=== PATIENT | male | born 1965 | race Caucasian/White ===

== ENCOUNTER 2016-09-15 12:55 | Emergency (ER) | payer MEDICARE ==
--- NOTE | 2016-09-15 13:33 | ERNOTE ---
Medical Problem HPI - Narrative Date of Service: 09/15/16 - General Chief Complaint: General Assessment Time Seen by Provider: 09/15/16 13:17 Source: patient Exam Limitations: no limitations - Immun/Allergies/Home Medications Immunizations: IMMUNIZATION HX Immunizations Up to Date Yes History of Influenza Vaccine Yes Allergies/Adverse Reactions: Allergies adhesive Allergy (Verified 09/15/16 13:02) Iodinated Contrast Media - Oral and Allergy (Verified 09/15/16 13:02) latex Allergy (Verified 09/15/16 13:02) milk Allergy (Verified 09/15/16 13:02) oxycodone HCl [From OxyContin] Allergy (Verified 09/15/16 13:02) peanut Allergy (Verified 09/15/16 13:02) Penicillins Allergy (Verified 09/15/16 13:02) Home Medications: HOME MEDICATIONS Cabergoline 0.5 mg PO DAILY 01/11/16 [Last Taken Unknown] Ferrous Sulfate [Iron] 325 mg PO BID 01/11/16 [Last Taken Unknown] - History of Present History Narrative: Pt. comes in with c/o LLE swelling and pain with weakness and dizziness. Pt. denies any SOB or CP but does state taht he has had some palpitations. Pt. denies any NVD, recent illness, fevers or chills. Pt. denies any prehospital treatment , alleviating factors, aggravating factors, or prehospital treatment. Pt. states taht he has a hx of pituitary tumor and Iron deficient anemia. Review of Systems - Review of Systems Constitutional: Present: weakness, fatigue. Absent: fever, chills, diaphoresis , malaise EYE: Present: no symptoms reported ENT: Present: no symptoms reported Respiratory: Present: no symptoms reported. Absent: shortness of breath, cough , wheezing Cardiology: Present: palpitations, edema - LLE. Absent: chest pain Gastrointestinal/Abdominal: Present: no symptoms reported. Absent: nausea, vomiting, diarrhea, abdominal pain Genitourinary: Present: no symptoms reported Musculoskeletal: Present: muscle pain - LLE Skin: Present: no symptoms reported. Absent: rash, change in hair/nails Neurological: Present: dizziness/light-headedness. Absent: headache, numbness, tingling All Other Systems: All systems neg except as marked - Patient's Past Medical History Patient History - Medical: No pertinent hx Patient History - Cardiac/Respiratory: No pertinent hx Patient History - Cancer: No Hx of Cancer Patient History - Surgical Procedures: Other Patient History - Other: None - Family History Father Family History - Medical: Diabetes Type 2 - Social History Living Situations: home Psych History: No pertinent hx Alcohol Use: none Drug Use: none - Immunizations Immunizations Up to Date: Yes History of Influenza Vaccine: Yes Physical Exam - Physical Exam General Appearance: Present: wd/wn, alert, no apparent distress Eye Exam: Normal inspection: bilateral, PERRL: bilateral, EOMI: bilateral Ears, Nose, Throat: Present: normal ENT inspection, normal pharynx Neck: Present: normal inspection, nontender. Absent: lymphadenopathy (R), lymphadenopathy (L) Respiratory: Present: no respiratory distress, normal breath sounds, no accessory muscle use, chest nontender, lungs clear Cardiovascular/Chest: Present: regular rate, rhythm, no murmur, normal peripheral pulses Gastrointestinal/Abdominal: Present: normal bowel sounds, nontender, nondistended, soft, no organomegaly Back Exam: Present: normal inspection, normal range of motion, no CVA tenderness , no vertebral tenderness Extremity Exam: Present: calf tenderness - LLE, extremity edema - LLE +4 Neurological Exam: Present: alert, oriented, normal mood/affect, no motor/ sensory deficits Skin Exam: Present: normal color, warm/dry. Absent: pallor, skin rash ED Progress - Date and Time Seen: Date and Time: 09/15/16 17:52 Discussed case with Trina Julia and she feels pt. is unable to be admitted as he is not septic but with pt dizziness and weakness am uncomfortable. Requested Trina to come evaluate the pt. and discharge from the ER. Pt. miraculously was not dizzy and weak after receiving pain medications so notified hospitalist that it was unnecessary for her to assess pt as he had greatly improved. Verified orthostatic BP WNL. Will discharge pt. to home. - Vital Signs Patient's Vital Signs:: I have reviewed the patient's vital signs. Vital Signs: Vital Signs 09/15/16 12:59 Temperature 36.2 C L Pulse Rate 79 Respiratory 12 Rate Blood Pressure 143/85 O2 Sat by Pulse 95 Oximetry - EKG EKG: NSR EKG read: Reviewed by me EKG Comments: Interpreted by Dr Gilmore - CT/Ultrasound CT/Ultrasound Narrative: US neg for DVT - Progress/Reassessment Chief Complaint: General Assessment Departure - Departure Clinical Impression: Cellulitis and abscess of left lower extremity Disposition: Home self-care Condition: Fair Instructions: Cellulitis, Adult, [id number] Additional Instructions: Please follow up with primary provider in 2-3 days and return to the ER if you have any further problems. Referrals: Kiya Pollack, CIRCUIT CLERK [Primary Care Provider] -
--- OUTSIDE RECORDS SUMMARY | 2016-09-15 13:33 | XMS REPORT | Continuity of Care Document ---
:1965 Author Organization [facility] ([facility]) Address [address] [place] [address] Phone [phone] Care Team Providers Name Role Phone Kiya Pollack Primary Care Provider [phone] Source Comments This disclosure is being made pursuant to the Care Everywhere program, applicable federal and state laws, and may not contain all informaitonavailable regarding this patient.[facility] ([facility]) Active Allergies and Adverse Reactions Allergen Noted Date Severity Reactions Comments Adhesive 03/17/2013 Pruritus,Rash Caffeine 11/24/2012 Chest pain Chest pain and palpitations Contrast Media Respiratory Distress Food Extracts 11/24/2012 Angioedema FOOD DYES Iodine Angioedema "white blood count went up high" Latex, Natural Rubber Urticaria (Hives) Non-Med Tape Pruritus Oxycodone OTHER depression Penicillins Respiratory Distress Current Medications Prescription Sig. Disp. Refills Start Date End Date Status CALCIUM PO Take 1 Tab by mouth Active daily. cholecalciferol Take 1,000 Units by Active (VITAMIN D3) 1,000 mouth daily. unit tablet cabergoline 0.5 mg Take 1 Tab by mouth 2 8 Tab 11 10/06/2013 Active tablet times weekly. Indications: HYPERPROLACTINEMIA VITAMIN D2 50,000 1 06/29/2014 Active unit capsule Active Problems Problem Noted Date Prolactinoma 03/17/2013 Hyperprolactinemia 11/05/2012 Gynecomastia 11/05/2012 Hypogonadism male 11/05/2012 Primary localized osteoarthrosis, lower leg 12/03/2007 Pain in limb 08/13/2007 Obesity, unspecified 02/20/2006 Other closed dislocation of knee(836.59) 06/26/2004 Closed posterior dislocation of tibia, proximal end 01/24/2004 Resolved Problems Problem Noted Date Resolved Date Wheezing 05/09/2006 11/05/2012 Cough 05/09/2006 11/05/2012 Screening for diabetes mellitus 02/20/2006 11/05/2012 JOINT PAIN-L/LEG 11/22/2004 11/05/2012 Other and unspecified anterior pituitary hyperfunction 09/27/2004 11/05/2012 Immunizations Name Dates Previously Given Next Due Influenza, unspecified 05/06/2007 Social History Tobacco Use Types Packs/Day Years Used Date Never Smoker Last Filed Vital Signs Vital Sign Reading Time Taken Blood Pressure 144/80 09/22/2014 1:26 PM CDT Pulse 68 09/22/2014 1:26 PM CDT Temperature 36.5 C (97.7 F) 10/06/2013 2:55 PM CDT Respiratory Rate 20 02/18/2008 8:03 AM CDT Height 1.88 m (6' 2") 09/22/2014 1:26 PM CDT Weight 166.924 kg (368 lb) 09/22/2014 1:26 PM CDT Body Mass Index 47.23 09/22/2014 1:26 PM CDT Oxygen Saturation - - Plan of Care Health Maintenance Due Date Last Done Comments Hepatitis B Vaccine (1 of 3 - Primary Series) 1965 Tdap Vaccine 1976 Lipid Disorder Screening 12/22/1983 MMR Vaccine 12/22/1983 Td Vaccine 12/22/1983 Influenza Vaccine: Seasonal (#1) 11/21/2015 05/06/2007 Colonoscopy 2015 Prostate Cancer Screening 12/22/2015 11/05/2012 Results from Last 3 Months Not on file
[2016-09-15 13:48] LABS: Hematocrit 40.1 % (42.0-52.0); Hemoglobin 12.9 gm/dL (13.5-18.0); Mean Corpuscular Hgb Conc 32.2 g/dl (32-36); Mean Platelet Volume 9.8 fl (6.0-9.5); Neutrophil # 12.3 K/mm3 (1.3-6.0); Neutrophil % 66.2 % (42-75.0); Platelet Count 598 K/mm3 (150-450); Red Blood Count 4.61 M/mm3 (4.7-6.0); Red Cell Distribution Width 14.7 % (11.5-14.0); White Blood Count 18.6 K/mm3 (4.0-10.5)
[2016-09-15 13:54] LABS: Total Cells Counted 100
[2016-09-15] MEDS ORDERED: KETOROLAC TROMETHAMINE 30 MG/ML VIAL IV ONE (14:04)
[2016-09-15 14:05] LABS: ALT 33 U/L (19-67); AST 23 U/L (0-48); Albumin * 3.6 gm/dl (3.4-5.0); Alkaline Phosphatase * 99 U/L (50-170); Anion Gap 11.1 mmol/L (6.8-13.8); BUN/Creatinine Ratio 17.1 (9.0-21.6); Bilirubin, Total 0.4 mg/dL (0.0-1.1); Blood Urea Nitrogen 14 mg/dL (6-23); CRP 1.3 mg/dL (0.0-0.9); Ca. Corrected For Albumin 9.2 mg/dL (8.4-10.2); Calcium * 9.2 mg/dL (7.9-10.9); Carbon Dioxide 30.2 mmol/L (24-32.6); Chloride 106 mmol/L (97-106); Glucose * 94 mg/dL (70-110); Potassium 4.3 mmol/L (3.4-4.6); Sodium 143 mmol/L (132-142); Total Protein 7.7 gm/dL (6.2-8.2); Troponin I Less than 0.017 ng/ml (0.00-0.10)
[2016-09-15] MEDS ORDERED: KETOROLAC TROMETHAMINE 30 MG/ML VIAL ONE (14:08)
[2016-09-15 14:23] LABS: Eosinophil 1 % (0-3); Lymphocyte 26 % (20-51); Monocyte 12 % (0-9); Neutrophil 61 % (42-75); Neutrophil # 11.3 K/mm3 (1.3-6.0)
[2016-09-15 14:24] LABS: Platelet Estimate Increased (NORMAL); RBC Morphology Normal (NORMAL)
[2016-09-15] MEDS ORDERED: NORMAL SALINE 1,000 ML IV ONE (14:38)
[2016-09-15 15:54] LABS: Urine Appearance Clear; Urine Bacteria None Seen; Urine Bilirubin Negative (NEGATIVE); Urine Blood Negative /ul (NEGATIVE); Urine Color Yellow; Urine Ketone Negative (NEGATIVE); Urine Nitrite Negative (NEGATIVE); Urine Protein Negative (NEGATIVE); Urine RBC None Seen /hpf (0-5); Urine Specific Gravity 1.025 SP.GR. (1.005-1.030); Urine Urobilinogen Normal (NORMAL); Urine WBC None Seen /hpf (0-5); Urine pH 5.5 pH (5.0-7.0)
[2016-09-15] MEDS ORDERED: ACETAMINOPHEN 500 MG TABLET PO ONE (15:59)
[2016-09-15 16:07] VITALS: BP 138/79
--- NOTE | 2016-09-15 16:46 | OR ---
Anesthesia Procedure Note - Anesthesia Procedure Note Narrative: Vital Signs - Last Taken Temp 36.2 C L 09/15/16 12:59 Pulse 74 09/15/16 16:06 Resp 12 09/15/16 16:06 BP 138/79 09/15/16 16:06 Pulse Ox 95 09/15/16 16:06 O2 Oxygen Delivery Method Room Air 09/15/16 16:45 ANESTHESIA PROCEDURE NOTE Date of procedure: 09/15/2016. Time of procedure: 1630. Performed by: Melquiades Minor CRNA Supervisor Assembly Stock: None . Preprocedure diagnosis: Anemia. Difficult IV access. Post procedure diagnosis: Same. Procedure: IV start Indications: Difficult IV access. Findings: 22-gauge Angiocath started in patient's right forearm EBL: Minimal. Fluids: N/A. Specimen: N/A. Post procedure condition: The patient tolerated the procedure well. No complications were noted. Thank you for this consultation Melquiades Minor CRNA
== END 2016-09-15 18:20 | disposition home or self-care (01) ==
LOC: ER 12:55
DX: L03.116 Cellulitis of left lower limb (principal); L02.416 Cutaneous abscess of left lower limb

== ENCOUNTER 2016-11-10 16:45 | Emergency (ER) | payer MEDICARE ==
[2016-11-10] MEDS ORDERED: KETOROLAC TROMETHAMINE 60 MG/2 ML VIAL IM ONE ×2 (17:00→17:02)
[2016-11-10] MEDS ORDERED: HYDROmorphone HCL 1 MG/ML DISP.SYRIN IM ONE (17:02)
[2016-11-10] MEDS ORDERED: ONDANSETRON HCL 8 MG TABLET PO ONE (17:03)
[2016-11-10] MEDS ORDERED: HYDROmorphone HCL 1 MG/ML DISP.SYRIN ONE (17:05)
[2016-11-10] MEDS ORDERED: ONDANSETRON HCL 8 MG TABLET ONE (17:05)
--- NOTE | 2016-11-10 17:05 | ERNOTE ---
Lower Extremity HPI - Narrative Date of Service: 11/10/16 - General Lower Extremities Pain: hip: left, leg: left Time Seen by Provider: 11/10/16 16:53 Source: patient Exam Limitations: no limitations - Immun/Allergies/Home Medications Immunizations: IMMUNIZATION HX Immunizations Up to Date Yes History of Influenza Vaccine Yes Allergies/Adverse Reactions: Allergies Allergy/AdvReac Type Severity Reaction Status Date / Time adhesive Allergy Verified 09/15/16 13:02 Iodinated Contrast Media - Allergy Verified 09/15/16 13:02 Oral and latex Allergy Verified 09/15/16 13:02 milk Allergy Verified 09/15/16 13:02 oxycodone HCl Allergy Verified 09/15/16 13:02 [From OxyContin] peanut Allergy Verified 09/15/16 13:02 Penicillins Allergy Verified 09/15/16 13:02 Home Medications: HOME MEDICATIONS Cabergoline 0.5 mg PO DAILY 01/11/16 [Last Taken Unknown] Ibuprofen [Motrin] 800 mg PO TID PRN #30 tab 11/10/16 [Last Taken Unknown] Tramadol HCl [Rybix Odt] 50 mg PO TID PRN #14 11/10/16 [Last Taken Unknown] - History of Present Illness Narrative: 50-year-old white male with chronic lymphedema because of prior compartment syndrome surgery on his left lower extremity year 2003 presents with acute injury to left lower extremity. Patient states he injured his left lower leg 3 hours ago. He states initially it did not hurt bad but then began hurting severely about 20 minutes after the injury. He states he was getting up with his spider vehicle and twisted his left knee. He has no numbness or tingling. Pain is severe. He was able to drive himself to the ED door. He called from the door and we had to go out and help assist him out of his vehicle and into a wheelchair to bring him into the ED. Denies any fall with the original injury. Review of Systems - Review of Systems Constitutional: Present: no symptoms reported Respiratory: Present: no symptoms reported Cardiology: Present: chest pain, other - patient states he has some chest pain because he is anxious. Gastrointestinal/Abdominal: Present: no symptoms reported, nausea Genitourinary: Present: no symptoms reported Musculoskeletal: Present: See HPI Skin: Present: no symptoms reported Neurological: Present: no symptoms reported. Absent: weakness, numbness Endocrine: Present: See HPI Hematologic/Lymphatic: Present: other - patient has chronic lymphedema left lower extremity from prior compartment syndrome and complication from recovery from surgery All Other Systems: All systems neg except as marked - Patient's Past Medical History Patient History - Medical: No pertinent hx Patient History - Cardiac/Respiratory: No pertinent hx Patient History - Cancer: No Hx of Cancer Patient History - Surgical Procedures: Other Patient History - Other: None - Family History Father Family History - Medical: Diabetes Type 2 - Social History Living Situations: home Psych History: No pertinent hx Alcohol Use: none Drug Use: none - Immunizations Immunizations Up to Date: Yes History of Influenza Vaccine: Yes Physical Exam - Physical Exam General Appearance: Present: wd/wn, alert, mild distress Head Exam: Present: normal inspection Ears, Nose, Throat: Present: normal ENT inspection Neck: Present: normal inspection Respiratory: Present: no respiratory distress, normal breath sounds, no accessory muscle use Cardiovascular/Chest: Present: regular rate, rhythm, no murmur, normal peripheral pulses Gastrointestinal/Abdominal: Present: normal bowel sounds, abnormal bowel sounds Back Exam: Present: normal inspection Extremity Exam: Present: other - chronic severe lymphedema left lower extremity with large medial and lateral prior surgical scars for the compartment syndrome. No overt tenderness. Patient unable to flex or tolerate any testing of the knee joint on the left due to pain. There is no focal tenderness. I do not think there is effusion. However exam is limited due to pain and patient's baseline severe lymphedema. Skin Exam: Present: normal color, warm/dry Lymphatic Exam: Present: other - chronic left lower leg lymphedema ED Progress - Results and Orders Patient's Lab Results:: I have reviewed the patient's lab results. - Vital Signs Patient's Vital Signs:: I have reviewed the patient's vital signs. - EKG EKG: NSR, no ST T wave changes EKG read: Interp. by me EKG Comments: Incomplete right bundle-branch block - Progress/Reassessment Progress:: Improved Progress Note-Subjective: 11/10/16 18:13 Patient given Dilaudid 1 mg IM, Toradol 60 mg IM, Zofran. Patient felt much better. Vital signs stable. He has no history of coronary disease. He did not have associated symptoms with the chest pain other than nausea. He feels this was from the pain. Troponins negative. Patient has severe chronic degenerative changes with associate with the left knee. He has a chronic changes associated with the lymphedema. I do not think a knee immobilizer will fit his leg. Crutches. No weightbearing. Follow up with primary care or orthopedics 1 week. If patient continues to have problems he will need additional evaluation. I discussed all this with the patient he verbalized understanding. He will return to the ED if he has any problems. He will also return if he has any return of chest symptomology. 11/10/16 18:15 I've reviewed the radiologist's interpretation of the plain films. There is no acute findings. Plan - Plan Plan: Patient will follow up with primary care physician or orthopedist. No weightbearing. Crutches. Nonsteroidals. Pain medication as needed. Return if problems. Departure Clinical Impression: Left leg injury Qualifiers: Encounter type: initial encounter Qualified Code(s): S89.92XA - Unspecified injury of left lower leg, initial encounter Left knee sprain Qualifiers: Encounter type: initial encounter Involved ligament of knee: unspecified ligament Qualified Code(s): S83.92XA - Sprain of unspecified site of left knee, initial encounter - Departure Condition: Stable Instructions: Knee Pain, Knee Sprain, [id number], Knee Pain, [id number] Referrals: Kiya Pollack CNP [Primary Care Provider] - Prescriptions: Ibuprofen [Motrin] 800 mg PO TID PRN #30 tab PRN Reason: pain Tramadol HCl [Rybix Odt] 50 mg PO TID PRN #14 PRN Reason: Pain
[2016-11-10 17:13] LABS: Hematocrit 39.2 % (42.0-52.0); Hemoglobin 12.9 gm/dL (13.5-18.0); Mean Cell Volume 85.4 fl (78-100); Mean Corpuscular Hemoglobin 28.1 pg (27-31); Mean Corpuscular Hgb Conc 32.9 g/dl (32-36); Mean Platelet Volume 9.6 fl (6.0-9.5); Neutrophil # 16.7 K/mm3 (1.3-6.0); Neutrophil % 74.1 % (42-75.0); Platelet Count 586 K/mm3 (150-450); Red Blood Count 4.59 M/mm3 (4.7-6.0); Red Cell Distribution Width 15.2 % (11.5-14.0); White Blood Count 22.5 K/mm3 (4.0-10.5)
[2016-11-10 17:17] LABS: Total Cells Counted 100
[2016-11-10 17:29] LABS: ALT 32 U/L (19-67); AST 19 U/L (0-48); Albumin * 3.5 gm/dl (3.4-5.0); Alkaline Phosphatase * 94 U/L (50-170); Anion Gap 8.7 mmol/L (6.8-13.8); BUN/Creatinine Ratio 13.9 (9.0-21.6); Bilirubin, Total 0.3 mg/dL (0.0-1.1); Blood Urea Nitrogen 11 mg/dL (6-23); Ca. Corrected For Albumin 8.6 mg/dL (8.4-10.2); Calcium * 8.5 mg/dL (7.9-10.9); Chloride 106 mmol/L (97-106); Glucose * 105 mg/dL (70-110); Potassium 4.2 mmol/L (3.4-4.6); Sodium 142 mmol/L (132-142); Total Protein 7.5 gm/dL (6.2-8.2); Troponin I Less than 0.017 ng/ml (0.00-0.10)
[2016-11-10 17:35] LABS: Carbon Dioxide 25.2 mmol/L (24-32.6); Eosinophil 1 % (0-3); Lymphocyte 15 % (20-51); Monocyte 10 % (0-9); Neutrophil 74 % (42-75); Neutrophil # 16.7 K/mm3 (1.3-6.0); Platelet Estimate Increased (NORMAL); RBC Morphology Normal (NORMAL)
--- OUTSIDE RECORDS SUMMARY | 2016-11-10 17:51 | XMS REPORT | Summary of Care ---
:1965 Author Organization [facility] Address [address] [place] [address] [address] [place] [address] Care Team Providers Name Role Phone Nila Pollcakgy Primary Care Physician Encounter Date(s): 10/24/16 - 10/24/16 [facility] [address] [id number] Discharge Diagnosis: AF (paroxysmal atrial fibrillation) Discharge Disposition: 01 Discharged to Home or Self Care Attending Physician: Miky Uribe MD Referring Physician: Miky Uribe MD Vital Signs Most recent to oldest [Reference Range]: 1 Peripheral Pulse Rate [60-100 bpm] 65 bpm (10/24/16 3:39 PM) SpO2 [90-100 %] 93 % (10/24/16 3:39 PM) SpO2 Location Right hand (10/24/16 3:39 PM) Blood Pressure [90-130/60-90 mmHg] 121/63mmHg (10/24/16 3:39 PM) Mean Arterial Pressure, Cuff 82 mmHg (10/24/16 3:39 PM) Most recent to oldest [Reference Range]: 1 Height/Length Measured 188 cm (10/24/16 3:39 PM) Weight Dosing 171.90 kg1 (10/24/16 3:46 PM) Weight Measured 171.9 kg (10/24/16 3:39 PM) BSA Measured 2.85 m2 (10/24/16 3:39 PM) Body Mass Index Measured 48.64 kg/m2 (10/24/16 3:39 PM) 1Result Comment: This result was because the dosing weight was either not entered or it is>30 days old. This result is based off: Weight Measured October 24, 2016 15:39:00 CDT by Gail Campos RN Problem List Condition Effective Dates Status Health Status Informant AF (paroxysmal atrial Active fibrillation)(Confirmed) Kidney stone(Confirmed) Active Pancreatic mass(Confirmed) Active Splenectomy(Confirmed) Active Allergies, Adverse Reactions, Alerts Substance Reaction Severity Status Adhesive Rash Severe Active penicillin Rash Severe Active Medications cabergoline 0.5 mg oral tablet 1 tab(s), Oral, qWeek, # 8 tab(s), 0 Refill(s), Start Date: 10/15/16 7:51:00 CDT Start Date: 10/15/16 Status: OrderedFerrogels Forte 1 cap(s), Oral, Daily, 0 Refill(s), Start Date: 01/24/15 16:07:00 CDT Start Date: 01/24/15 Stop Date: 10/15/16 Status: CompletedHYDROcodone-acetaminophen 5 mg-325 mg oral tablet 1-2 tab(s), Oral, q6hr interval, PRN pain moderate 4-7, 0 Refill(s), Start Date : 01/27/15 11:44:00 CDT Start Date: 01/27/15 Stop Date: 08/13/15 Status: CompletedHYDROcodone-acetaminophen 5 mg-325 mg oral tablet 1 tab(s), Oral, q4hr, PRN for pain, X 3 days, # 18 tab(s), 0 Refill(s), Start Date: 08/13/15 20:45:00 CDT Start Date: 08/13/15 Stop Date: 08/16/15 Status: CompletedKeflex 500 mg oral capsule 1 cap(s), Oral, QID, # 40 cap(s), 0 Refill(s) Start Date: 01/15/14 Stop Date: 11/08/14 Status: CompletedNorco 5 mg-325 mg oral tablet 2 tab(s), Oral, q6hr, PRN for pain, X 2 days, # 16 tab(s), 0 Refill(s), Start Date: 01/31/15 15:18:00 CDT Start Date: 01/31/15 Stop Date: 02/02/15 Status: CompletedNorco 7.5 mg-325 mg oral tablet 1 tab(s), Oral, q6hr, PRN for pain, X 5 days, # 20 tab(s), 0 Refill(s) Start Date: 11/30/13 Stop Date: 12/05/13 Status: Completedoxybutynin 5 mg, Oral, BID, PRN as needed for urinary discomfort, 0 Refill(s), Start Date: 01/27/15 11:42:00 CDT Start Date: 01/27/15 Stop Date: 02/01/15 Status: DiscontinuedPoly Iron (as elemental iron) 150 mg oral capsule 2 cap(s), Oral, Daily, # 60 cap(s), 0 Refill(s), Start Date: 10/15/16 8:00:00 CDT Start Date: 10/15/16 Status: OrderedStriant 30 mg, Buccal, q12hr interval, 0 Refill(s), Start Date: 01/24/15 16:06:00 CDT Start Date: 01/24/15 Stop Date: 10/15/16 Status: Completedsulfamethoxazole-trimethoprim 800 mg-160 mg oral tablet 1 tab(s), Oral, BID, 0 Refill(s), Start Date: 01/27/15 11:44:00 CDT Start Date: 01/27/15 Stop Date: 08/13/15 Status: CompletedVicodin 5 mg-325 mg oral tablet 1-2tabs, Oral, q6hr interval, # 24 tab(s), 0 Refill(s) Start Date: 11/15/13 Stop Date: 11/18/13 Status: CompletedVitamin D3 50,000 intl units oral capsule 1 cap(s), Oral, q7day, # 12 cap(s), 0 Refill(s), Start Date: 10/15/16 7:54:00 CDT Start Date: 10/15/16 Status: OrderedXarelto 20 mg oral tablet 1 tab(s), Oral, qPM, # 30 tab(s), 0 Refill(s), Start Date: 10/15/16 10:52:00 CDT , Pharmacy: [facility] [id number] Start Date: 10/15/16 Status: OrderedXarelto 20 mg oral tablet 1 tab(s), Oral, qPM, # 30 tab(s), 0 Refill(s), Start Date: 10/15/16 10:52:00 CDT Start Date: 10/15/16 Stop Date: 10/15/16 Status: DiscontinuedXarelto 20 mg oral tablet 1 tab(s), Oral, qPM, # 2 bottles, 0 Refill(s), Start Date: 10/15/16 10:51:00 CDT , samples given to patient (Rx), [id number], 12/21/18 Start Date: 10/15/16 Status: OrderedXarelto 20 mg oral tablet 1 tab(s), Oral, qPM, # 2 bottles, 0 Refill(s), Start Date: 10/15/16 10:49:00 CDT , samples given to patient (Rx), [id number], 07/21/18 Start Date: 10/15/16 Status: OrderedXarelto 20 mg oral tablet 1 tab(s), Oral, qPM, # 30 tab(s), 0 Refill(s), Start Date: 10/15/16 10:48:00 CDT Start Date: 10/15/16 Stop Date: 10/15/16 Status: DiscontinuedXarelto 20 mg oral tablet 1 tab(s), Oral, qPM, # 30 tab(s), 0 Refill(s), Start Date: 10/15/16 10:48:00 CDT Start Date: 10/15/16 Stop Date: 10/15/16 Status: Discontinued Results No data available for this section Immunizations No data available for this section Procedures Procedure Date Related Diagnosis Body Site Echocardiogram1 10/15/16 Cystoscopy - SN (Left)2 02/02/15 Cystoureteroscopy With Lithotripsy (Left)3 01/31/15 Cystoureteroscopy With Lithotripsy (Left)4 01/25/15 Splenectomy 1984 Abdominoplasty Fasciotomy Gastric bypass operation Ureteral stent retained 1EF 50-55%2auto-populated from documented surgical [id number] from documented surgical [id number] from documented surgical case Social History No data available for this section Assessment and Plan No data available for this section
--- OUTSIDE RECORDS SUMMARY | 2016-11-10 17:51 | XMS REPORT | Summary of Care ---
:1965 Author Organization [facility] Care Team Providers Name Role Phone Kiya Pollack Primary Care Physician Encounter Date(s): 10/15/16 - 10/15/16 [facility] [address] [id number] [[email or web address]] Discharge Disposition: Discharged to Home or Self Care Attending Physician: Russell Quesada DO Admitting Physician: Russell Quesada DO Vital Signs Most recent to oldest 1 2 3 [Reference Range]: Temperature Temporal Artery 36.2 DegC 36.3 DegC 36.4 DegC [36-38 DegC] (10/15/16 11:35 AM) (10/15/16 10:05 AM) (10/15/16 9:37 AM) Heart Rate Monitored [60-100 67 bpm 64 bpm 69 bpm bpm] (10/15/16 11:35 AM) (10/15/16 11:07 AM) (10/15/16 10:57 AM) Respiratory Rate [12-20 20 br/min 17 br/min 23 br/min br/min] (10/15/16 11:35 AM) (10/15/16 11:07 AM) *HI* (10/15/16 10:57 AM) SpO2 [90-100 %] 97 % 97 % 99 % (10/15/16 11:35 AM) (10/15/16 11:07 AM) (10/15/16 10:57 AM) SpO2 Location Left hand Left hand Left hand (10/15/16 10:05 AM) (10/15/16 10:02 AM) (10/15/16 9:57 AM) Blood Pressure [90-130/60-90 116/66mmHg 98/80mmHg 102/67mmHg mmHg] (10/15/16 11:35 AM) (10/15/16 11:07 AM) (10/15/16 10:57 AM) Mean Arterial Pressure 85 mmHg 75 mmHg 80 mmHg Monitor Measure (10/15/16 11:07 AM) (10/15/16 10:57 AM) (10/15/16 10:47 AM) Blood Pressure Location Left arm (10/15/16 11:35 AM) Most recent to oldest [Reference Range]: 1 2 3 Weight Estimated 170 kg (10/15/16 7:29 AM) Weight Dosing 170.00 kg1 (10/15/16 7:30 AM) 1Result Comment: This result was because the dosing weight was either not entered or it is>30 days old. This result is based off: Weight Estimated October 15, 2016 07:29:00 CDT by Nai Mustafa RN Problem List Condition Effective Dates Status Health Status Informant Kidney stone(Confirmed) Active Pancreatic mass(Confirmed) Active Splenectomy(Confirmed) [...] Start Date: 10/15/16 10:52:00 CDT , Pharmacy: [facility] [employer] [id number] Start Date: 10/15/16 Status: OrderedXarelto 20 mg oral tablet 1 tab(s), Oral, qPM, # 30 tab(s), 0 Refill(s), Start Date: 10/15/16 10:52:00 CDT Start Date: 10/15/16 Stop Date: 10/15/16 Status: DiscontinuedXarelto 20 mg oral tablet 1 tab(s), Oral, qPM, # 2 bottles, 0 Refill(s), Start Date: 10/15/16 10:51:00 CDT , samples given to patient (Rx), [id number], 12/21/18 Start Date: 10/15/16 Status: OrderedXarelto 20 mg oral tablet 1 tab(s), Oral, qPM, # 2 bottles, 0 Refill(s), Start Date: 10/15/16 10:49:00 CDT , samples given to patient (Rx), [id number], 07/21/18 Start Date: 10/15/16 Status: OrderedXarelto 20 mg oral tablet 1 tab(s), Oral, qPM, # 30 tab(s), 0 Refill(s), Start Date: 10/15/16 10:48:00 CDT Start Date: 10/15/16 Stop Date: 10/15/16 Status: DiscontinuedXarelto 20 mg oral tablet 1 tab(s), Oral, qPM, # 30 tab(s), 0 Refill(s), Start Date: 10/15/16 10:48:00 CDT Start Date: 10/15/16 Stop Date: 10/15/16 Status: Discontinued Results Patient Viewable Results Most recent to oldest [Reference Range]: 1 2 WBC [4.8-10.8 thou/mm3] 12.2 thou/mm3 *HI* (10/15/16 8:02 AM) RBC [4.60-6.00 Mil/mm3] 4.67 Mil/mm3 (10/15/16 8:02 AM) Hgb [14.0-18.0 g/dL] 13.4 g/dL *LOW* (10/15/16 8:02 AM) Hct [42.0-52.0 %] 40.1 % *LOW* (10/15/16 8:02 AM) MCV [80.0-94.0 fL] 85.9 fL (10/15/16 8:02 AM) MCH [25.0-38.0 pg/cell] 28.7 pg/cell (10/15/16 8:02 AM) MCHC [31.0-37.0 g/dL] 33.4 g/dL (10/15/16 8:02 AM) RDW [1.0-48.0 fL] 48.5 fL *HI* (10/15/16 8:02 AM) Platelet [130-400 thou/mm3] 581 thou/mm3 *HI* (10/15/16 8:02 AM) Neutrophils % Auto [50.0-75.0 %] 57.4 % (10/15/16 8:02 AM) Lymphocytes % Auto [15.0-41.0 %] 25.4 % (10/15/16 8:02 AM) Monocytes % Auto [2.0-10.0 %] 14.8 % *HI* (10/15/16 8:02 AM) Eosinophils % Auto [0.0-6.0 %] 2.2 % (10/15/16 8:02 AM) Basophil % Auto [0.0-1.0 %] 0.2 % (10/15/16 8:02 AM) Neutrophils Absolute [1.5-5.9 thou/mm3] 7.0 thou/mm3 *HI* (10/15/16 8:02 AM) Lymphocytes Absolute [1.5-4.0 thou/mm3] 3.1 thou/mm3 (10/15/16 8:02 AM) Monocytes Absolute [0.0-0.9 thou/mm3] 1.8 thou/mm3 *HI* (10/15/16 8:02 AM) Eosinophil Absolute [0.0-0.7 thou/mm3] 0.3 thou/mm3 (10/15/16 8:02 AM) Basophil Absolute [0.0-0.2 thou/mm3] 0.0 thou/mm3 (10/15/16 8:02 AM) Sodium Lvl [135-144 mEq/L] 142 mEq/L (10/15/16 8:02 AM) Potassium Lvl [3.3-4.8 mEq/L] 4.3 mEq/L (10/15/16 8:02 AM) Chloride Lvl [98-107 mEq/L] 108 mEq/L *HI* (10/15/16 8:02 AM) Bicarbonate Lvl [22-30 mmol/L] 23 mmol/L (10/15/16 8:02 AM) Anion Gap [10.0-20.0] 15.3 (10/15/16 8:02 AM) Glucose Lvl [70-108 mg/dL] 99 mg/dL (10/15/16 8:02 AM) BUN [7-21 mg/dL] 11 mg/dL (10/15/16 8:02 AM) Creatinine Lvl [0.50-1.20 mg/dL] 0.44 mg/dL *LOW* (10/15/16 8:02 AM) BUN/Creat Ratio 25.0 *NA* (10/15/16 8:02 AM) eGFR AA [>=60] >60 (10/15/16 8:02 AM) eGFR JH [>=60] >60 (10/15/16 8:02 AM) Calcium Lvl [8.6-10.2 mg/dL] 8.4 mg/dL *LOW* (10/15/16 8:02 AM) B-type Natriuretic Peptide [0-99 pg/mL] 135 pg/mL *HI* (10/15/16 8:02 AM) TSH [0.50-3.00 mIU/L] 1.75 mIU/L (10/15/16 8:02 AM) Estimated Creatinine Clearance 331.81 mL/min 182.50 mL/min (10/15/16 8:28 AM) (10/15/16 7:30 AM) Immunizations No data available for this section Procedures Procedure Date Related Diagnosis Body Site Cystoscopy - SN (Left)1 02/02/15 Cystoureteroscopy With Lithotripsy (Left)2 01/31/15 Cystoureteroscopy With Lithotripsy (Left)3 01/25/15 Splenectomy 1984 Abdominoplasty Fasciotomy Gastric bypass operation Ureteral stent retained 1auto-populated from documented surgical [id number] from documented surgical [id number] from documented surgical case Social History No data available for this section Assessment and Plan No data available for this section
[2016-11-10 19:02] VITALS: BP 151/68
== END 2016-11-10 18:43 | disposition home or self-care (01) ==
LOC: ER 16:45
DX: S89.92XA Unspecified injury of left lower leg, initial encounter (principal); S83.92XA Sprain of unspecified site of left knee, initial encounter

== ENCOUNTER 2018-01-05 16:48 | Inpatient (IN) ==
--- NOTE | 2018-01-05 17:28 | ERNOTE ---
Medical Problem HPI - Narrative Date of Service: 01/05/18 - General Chief Complaint: General Assessment Time Seen by Provider: 01/05/18 17:03 Source: patient Exam Limitations: no limitations - Immun/Allergies/Home Medications Immunizations: IMMUNIZATION HX Immunizations Up to Date Yes History of Influenza Vaccine Yes Hx Pneumococcal Vaccination No Allergies/Adverse Reactions: Allergies adhesive Allergy (Verified 01/05/18 17:05) Iodinated Contrast- Oral and IV Dye Allergy (Verified 01/05/18 17:05) latex Allergy (Verified 01/05/18 17:05) milk Allergy (Verified 01/05/18 17:05) oxycodone HCl [From OxyContin] Allergy (Verified 01/05/18 17:05) peanut Allergy (Verified 01/05/18 17:05) Penicillins Allergy (Verified 01/05/18 17:05) Home Medications: HOME MEDICATIONS Cabergoline 0.5 mg PO DAILY 01/11/16 [Last Taken Unknown] Ibuprofen [Motrin] 800 mg PO TID PRN #30 tab 11/10/16 [Last Taken Unknown] Tramadol HCl [Rybix Odt] 50 mg PO TID PRN #14 11/10/16 [Last Taken Unknown] - History of Present History Narrative: Patient complains of fatigue and weakness with increased swelling and weakness of the LLE. States years ago he had compartment syndrome and had a fasciotomy of the left leg. Has had complications since that time. However over the past 2 days has noticed more swelling and redness of the leg. Has been very painful in the calf down to the ankle. Denies any dyspnea or chest pain but has noticed with activity he is breathing harder. Date (Duration): 01/03/18 Timing: getting worse Severity: moderate Modifying Factors - (Improves): Present: rest Modifying Factors - (Worsens): Present: movement Review of Systems - Review of Systems Constitutional: Present: fever, chills, weakness, fatigue, decreased activity level EYE: Present: no symptoms reported ENT: Present: no symptoms reported Respiratory: Present: other - Increased work of breathing with activity. Cardiology: Present: no symptoms reported Gastrointestinal/Abdominal: Present: no symptoms reported Genitourinary: Present: no symptoms reported Musculoskeletal: Present: other - Left leg swelling, painful with more redness. Does have chronic mild redness and swelling. Skin: Present: other - See skin Neurological: Present: no symptoms reported Endocrine: Present: no symptoms reported Hematologic/Lymphatic: Present: no symptoms reported Psych: Present: no symptoms reported Medical History (Last Updated 01/05/18 @ 20:22 by Ava Galindo) Cellulitis URI (upper respiratory infection) Social History: Preferred Language Divehi Do you have any oriental orthodox or No cultural preference? Smoking Status Never smoker Abuse History No History of abuse Psych History No pertinent hx Alcohol Use none Drug Use none Physical Exam - Physical Exam General Appearance: Present: wd/wn, alert, moderate distress Head Exam: Present: normal inspection, no evidence of injury Eye Exam: Normal inspection: bilateral, PERRL: bilateral, EOMI: bilateral Ears, Nose, Throat: Present: normal ENT inspection, normal pharynx Neck: Present: normal inspection, nontender, supple, full range of motion Respiratory: Present: no respiratory distress, normal breath sounds, no accessory muscle use, lungs clear Cardiovascular/Chest: Present: regular rate, rhythm, normal peripheral pulses, tachycardia Gastrointestinal/Abdominal: Present: normal bowel sounds, nondistended, soft, no organomegaly Back Exam: Present: normal inspection, no vertebral tenderness Extremity Exam: Present: other - Extremely edematous LLE extending from the knee down to the ankle. Significant warmth and redness throughout. Chronic scarring on both the medial and lateral sides from the fasciotomy. Tenderness in the calf down into the post tibial region. Neurological Exam: Present: alert, oriented, no motor/sensory deficits Skin Exam: Present: normal color, warm/dry ED Progress - Results and Orders Patient's Lab Results:: I have reviewed the patient's lab results. - Vital Signs Patient's Vital Signs:: I have reviewed the patient's vital signs. Vital Signs: Vital Signs 01/05/18 17:01 Temperature 38.2 C H Pulse Rate 101 H Respiratory Rate 18 Blood Pressure 125/60 O2 Sat by Pulse Oximetry 94 - EKG EKG Comments: Reviewed EKG - CT/Ultrasound CT/Ultrasound Narrative: US LLE (No signs of DVT) - Progress/Reassessment Chief Complaint: General Assessment Progress:: Improved - Transfer of Care Additional Notes: Spoke with Dr. Guerra who will accept patient acute for treatment of sepsis syndrome likely due to LLE cellulitis. Departure Clinical Impression: Cellulitis and abscess of left leg Sepsis Qualifiers: Sepsis type: sepsis due to unspecified organism Qualified Code(s): A41.9 - Sepsis, unspecified organism - Departure Disposition: Still a patient Condition: Stable Referrals: Kiya Pollack, GRISELDA [Primary Care Provider] -
[2018-01-05 17:36] LABS: Hematocrit 36.9 % (42.0-52.0); Hemoglobin 12.1 gm/dL (13.5-18.0); Mean Cell Volume 84.2 fl (78-100); Mean Corpuscular Hemoglobin 27.6 pg (27-31); Mean Corpuscular Hgb Conc 32.8 g/dl (32-36); Mean Platelet Volume 9.7 fl (8-11.3); Platelet Count 490 K/mm3 (150-450); Red Blood Count 4.38 M/mm3 (4.7-6.0); Red Cell Distribution Width 15.4 % (11.5-14.0); White Blood Count 64.7 K/mm3 (4.0-10.5)
[2018-01-05 17:38] LABS: Total Cells Counted 100
[2018-01-05 17:56] LABS: ALT 46 U/L (19-67); AST 36 U/L (0-48); Alkaline Phosphatase * 79 U/L (50-170); Anion Gap 12.6 mmol/L (6.8-13.8); BUN/Creatinine Ratio 14.3 (9.0-21.6); Bilirubin, Total 0.9 mg/dL (0.0-1.1); Blood Urea Nitrogen 16 mg/dL (6-23); Ca. Corrected For Albumin 8.8 mg/dL (8.4-10.2); Calcium * 8.3 mg/dL (7.9-10.9); Carbon Dioxide 24.2 mmol/L (24-32.6); Chloride 104 mmol/L (97-106); Glucose * 106 mg/dL (70-110); Potassium 3.8 mmol/L (3.4-4.6); Sodium 137 mmol/L (132-142)
[2018-01-05 18:02] LABS: Troponin I Less than 0.017 ng/mL (0.00-0.10)
[2018-01-05 18:10] LABS: Band 27 % (0-2.0); Lymphocyte 1 % (20-51); Monocyte 2 % (0-9); Neutrophil 70 % (42-75); Neutrophil # 45.3 K/mm3 (1.3-6.0); Platelet Estimate Increased (NORMAL); RBC Morphology Normal (NORMAL)
[2018-01-05] MEDS ORDERED: NORMAL SALINE 1,000 ML IV ONE (18:10)
[2018-01-05] MEDS ORDERED: VANCOMYCIN HCL 1 GM in DEXTROSE 5 % IN WATER 250 ML IV ONE ×2 (18:12)
[2018-01-05] MEDS ORDERED: MORPHINE SULFATE 4 MG/ML SYRG IV ONE ×2 (19:02→21:12)
[2018-01-05] MEDS ORDERED: MORPHINE SULFATE 4 MG/ML SYRG ONE ×2 (19:03→21:12)
[2018-01-05] MEDS: NORMAL SALINE 1,000 ML IV PRN ×3 (20:13→23:42)
[2018-01-05] MEDS ORDERED: ACETAMINOPHEN 325 MG TABLET PO PRN (22:48)
[2018-01-05 23:06] LABS: Urine Bilirubin Negative (NEGATIVE); Urine Blood 50 /ul (NEGATIVE); Urine Ketone Negative (NEGATIVE); Urine Nitrite Negative (NEGATIVE); Urine Protein 30 mg/dL (NEGATIVE); Urine Specific Gravity 1.025 SP.GR. (1.005-1.030); Urine Urobilinogen Normal (NORMAL)
[2018-01-05 23:16] LABS: Urine Appearance Slightly Cloudy (CLEAR); Urine Bacteria 1+; Urine Color Dark Yellow; Urine RBC 0-5 /hpf (0-5); Urine WBC 0-5 /hpf (0-5)
[2018-01-05] MEDS: traMADol HCL 50 MG TABLET PO PRN (23:23)
[2018-01-06] MEDS ORDERED: HYDROmorphone HCL 2 MG/ML VIAL IV ONE (01:11)
--- NOTE | 2018-01-06 04:38 | PATHPSR ---
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 The patient is admitted for treatement of left lower leg cellulitis. Elevated procalcitonin 20.89 ng/ml and lactic acid 2.2 mmole/L. Peripheral smear review by pathologist is ordered due to marked elevation of WBC with left shift of the neutrophilic series. CBC: WBC 64.7 K/mm3, hemoglobin 12.2 gm/dl, hematocrit 36.9 %, MCV is 84.2 fl, MCH is 27.6 pg, MCHC is 32.8 g/dl, Platelet count 490,000/mm. Manual differential: Neutrophils 70 %, bands 27 %, lymphocytes 1 %, monocytes 2 %, eosinophils 0 %, basophils 0 %, atypical reactive lymphocytes 0 %. RED BLOOD CELLS: Normochromic normocytic anemia PLATELETS: No abnormalities WHITE BLOOD CELLS: Marked leukocytosis with left shift in the granulocytic series, toxic granulation and dohle bodies DIAGNOSIS: PERIPHERAL BLOOD SMEAR, REVIEW BY PATHOLOGIST: -LEUKEMOID REACTION -MILD NORMOCHROMIC AND NORMOCYTIC ANEMIA COMMENT: The marked leukocytosis with a left shift in the granulocytic series is most likely secondary to this patient's left lower extremity cellulitis and sepsis (marked elevated procalcitonin). Blood cultures are pending at the time of this report. If the WBC count does not respond to treatment further evaluation including bone marrow evaluation and hematology consultation is suggested to exclude a myeloproliferative disorder. No immature elements or malignancy is identified on our examination. The findings are communicated by fax to Dr. Guerra on 01/06/2018.
[2018-01-06] MEDS: NORMAL SALINE 1,000 ML IV PRN ×2 (07:44→22:21)
[2018-01-06 09:57] LABS: Hematocrit 34.2 % (42.0-52.0); Hemoglobin 11.2 gm/dL (13.5-18.0); Mean Cell Volume 84.9 fl (78-100); Mean Corpuscular Hemoglobin 27.8 pg (27-31); Mean Corpuscular Hgb Conc 32.7 g/dl (32-36); Platelet Count 436 K/mm3 (150-450); Red Blood Count 4.03 M/mm3 (4.7-6.0); Red Cell Distribution Width 15.9 % (11.5-14.0); White Blood Count 43.5 K/mm3 (4.0-10.5)
[2018-01-06 10:00] LABS: Total Cells Counted 100
[2018-01-06] MEDS: CLINDAMYCIN PHOSPHATE 600 MG in DEXTROSE 5 % IN WATER 100 ML IV SCH ×4 (10:08→16:59)
[2018-01-06 10:25] LABS: Band 10 % (0-2.0); Basophil 1 % (0-1); Lymphocyte 5 % (20-51); Monocyte 1 % (0-9); Neutrophil 83 % (42-75); Neutrophil # 36.1 K/mm3 (1.3-6.0); Platelet Estimate Normal (NORMAL)
[2018-01-06] MEDS: IBUPROFEN 800 MG TABLET PO PRN ×2 (11:32→16:14)
--- NOTE | 2018-01-06 17:23 | HP ---
Chief Complaint - Chief Complaint Date of Service: 01/06/18 Time of Service: 10:20 History of Present Illness: Patient has hx of acute compartment syndrome with fasciatomy of L LE. Since the surgery, he has been prone to infection which he normally catches before it gets out of hand. He states that he noticed his leg getting red and slightly painful Saturday when he was going to bed. He woke up with it it significantly worse. When he developed a fever Saturday night, he decided he better come in to be seen. Labs showed him to have an elevated WBC and procalcitonin, as well as a temp of 38.2. Blood cultures where drawn, he was started on Vanc and Rocephin , and admitted to the floor. Medical History (Last Updated 01/05/18 @ 21:59 by Sade Macias RN) Cellulitis Compartment syndrome of left lower extremity URI (upper respiratory infection) Surgical History: Surgical History (Last Updated 01/05/18 @ 22:00 by Sade Macias RN) H/O gastric bypass H/O splenectomy Family History: Family History (Last Updated 01/05/18 @ 22:00 by Sade Macias RN) Other No pertinent family history Social History: Patient Lives/Resources Home Utilized Preferred Language Macedonian Do you have any gnosticism or No cultural preference? Smoking Status Never smoker Have you smoked in the past 12 No months Do you dip or chew tobacco No Abuse History No History of abuse Psych History No pertinent hx Alcohol Use none Drug Use none Review Of Systems (GEN) - Review of Systems Generalized/Overall Review: Present: Chills, Fever, Diaphoresis Respiratory: Present: No Symptoms Reported Cardiac: Present: No Symptoms Reported Abdominal: Present: Nausea Genitourinary: Present: No Symptoms Reported Musculoskeletal: Present: Muscle Pain Skin: Present: Change in Color - redness and pain along L LE, no discharge Immunizations: IMMUNIZATION HX Immunizations Up to Date Yes History of Influenza Vaccine Yes Hx Pneumococcal Vaccination No Allergies/Adverse Reactions: Allergies Allergy/AdvReac Type Severity Reaction Status Date / Time adhesive Allergy Verified 01/05/18 17:05 Iodinated Contrast- Oral and Allergy Verified 01/05/18 17:05 IV Dye latex Allergy Verified 01/05/18 17:05 milk Allergy Verified 01/05/18 17:05 oxycodone HCl Allergy Verified 01/05/18 17:05 [From OxyContin] peanut Allergy Verified 01/05/18 17:05 Penicillins Allergy Verified 01/05/18 17:05 Home Medications: HOME MEDICATIONS Cabergoline 0.5 mg PO DAILY 01/11/16 [Last Taken Unknown] Ibuprofen [Motrin] 800 mg PO TID PRN #30 tab 11/10/16 [Last Taken Unknown] Tramadol HCl [Rybix Odt] 50 mg PO TID PRN #14 11/10/16 [Last Taken Unknown] Calcium Carbonate [Calcium] 500 mg PO TID 01/05/18 [Last Taken Unknown] Exam - Exam Vital Signs: Vital Signs - Last Taken Temp 36.5 C 01/06/18 14:45 Pulse 75 01/06/18 14:45 Resp 16 01/06/18 14:45 BP 114/59 01/06/18 14:45 Pulse Ox 96 01/06/18 14:45 Constitutional: Present: Alert, Oriented x3, Cooperative, Morbidly obese ENT Exam: Present: normal ENT inspection Eye Exam: bilateral eye: normal inspection, PERRL, EOMI Neck: Present: non-tender, full range of motion Respiratory: Present: chest non-tender, lungs clear, decreased breath sounds - due to body habitus. Absent: respiratory distress Cardiovascular/Chest: Present: normal peripheral pulses, edema Peripheral Pulses: dorsalis-pedis (R): 2+, dorsalis-pedis (L): 2+ Abdomen: Present: Normal bowel sounds, soft /Rectal: Present: Exam deferred Extremity: Present: calf tenderness, inflammation, lower extremity edema, leg pain, swelling Neurologic: Present: dark room attendant II-XII nml as tested Appearance: Present: appropriate appearance, appropriate insight Eye contact: Present: cooperative, good eye contact, normal speech Thoughts: Present: normal thought pattern Diagnostic Studies: Abnormal Lab Results 01/05/18 01/05/18 01/05/18 Range/Units 17:30 17:30 17:30 WBC 64.7 H (4.0-10.5) K/mm3 RBC 4.38 L (4.7-6.0) M/mm3 Hgb 12.1 L (13.5-18.0) gm/dL Hct 36.9 L (42.0-52.0) % RDW 15.4 H (11.5-14.0) % Plt Count 490 H (150-450) K/mm3 Neutrophils % (Manual) (42-75) % Band Neuts % (Manual) 27 H (0-2.0) % Lymphocytes % (Manual) 1 L (20-51) % Neutrophils # (Manual) 45.3 H (1.3-6.0) K/mm3 Lymphocytes # (Manual) 0.6 L (1.5-3.5) k/mm3 Monocytes # (Manual) 1.3 H (0.0-1.0) k/mm3 Basophils # (Manual) (0.0-0.1) k/mm3 Platelet Estimate Increased H (NORMAL) Percent Retic (0.4-1.8) % Lactic Acid, Venous 2.2 H* (0.4-2.0) mmol/L Albumin 3.0 L (3.4-5.0) gm/dl Procalcitonin (0.05-0.50) ng/mL Urine Protein (NEGATIVE) mg/dL Urine Blood (NEGATIVE) /ul Prot Sulfosalicylic Acd (0) mg/dL Urine Bacteria (NONE) 01/05/18 01/05/18 01/05/18 Range/Units 18:59 20:37 23:01 WBC (4.0-10.5) K/mm3 RBC (4.7-6.0) M/mm3 Hgb (13.5-18.0) gm/dL Hct (42.0-52.0) % RDW (11.5-14.0) % Plt Count (150-450) K/mm3 Neutrophils % (Manual) (42-75) % Band Neuts % (Manual) (0-2.0) % Lymphocytes % (Manual) (20-51) % Neutrophils # (Manual) (1.3-6.0) K/mm3 Lymphocytes # (Manual) (1.5-3.5) k/mm3 Monocytes # (Manual) (0.0-1.0) k/mm3 Basophils # (Manual) (0.0-0.1) k/mm3 Platelet Estimate (NORMAL) Percent Retic 1.9 H (0.4-1.8) % Lactic Acid, Venous (0.4-2.0) mmol/L Albumin (3.4-5.0) gm/dl Procalcitonin 20.89 H (0.05-0.50) ng/mL Urine Protein 30 H (NEGATIVE) mg/dL Urine Blood 50 H (NEGATIVE) /ul Prot Sulfosalicylic Acd 2+ H (0) mg/dL Urine Bacteria 1+ H (NONE) 01/06/18 Range/Units 09:45 WBC 43.5 H D (4.0-10.5) K/mm3 RBC 4.03 L (4.7-6.0) M/mm3 Hgb 11.2 L (13.5-18.0) gm/dL Hct 34.2 L (42.0-52.0) % RDW 15.9 H (11.5-14.0) % Plt Count (150-450) K/mm3 Neutrophils % (Manual) 83 H (42-75) % Band Neuts % (Manual) 10 H (0-2.0) % Lymphocytes % (Manual) 5 L (20-51) % Neutrophils # (Manual) 36.1 H (1.3-6.0) K/mm3 Lymphocytes # (Manual) (1.5-3.5) k/mm3 Monocytes # (Manual) (0.0-1.0) k/mm3 Basophils # (Manual) 0.4 H (0.0-0.1) k/mm3 Platelet Estimate (NORMAL) Percent Retic (0.4-1.8) % Lactic Acid, Venous (0.4-2.0) mmol/L Albumin (3.4-5.0) gm/dl Procalcitonin (0.05-0.50) ng/mL Urine Protein (NEGATIVE) mg/dL Urine Blood (NEGATIVE) /ul Prot Sulfosalicylic Acd (0) mg/dL Urine Bacteria (NONE) Microbiology 01/05/18 21:45 - Final Nares MRSA Negative Laboratory Results WBC 43.5 K/mm3 (4.0-10.5) H D 01/06/18 09:45 RBC 4.03 M/mm3 (4.7-6.0) L 01/06/18 09:45 Hgb 11.2 gm/dL (13.5-18.0) L 01/06/18 09:45 Hct 34.2 % (42.0-52.0) L 01/06/18 09:45 MCV 84.9 fl (78-100) 01/06/18 09:45 MCH 27.8 pg (27-31) 01/06/18 09:45 MCHC 32.7 g/dl (32-36) 01/06/18 09:45 RDW 15.9 % (11.5-14.0) H 01/06/18 09:45 Plt Count 436 K/mm3 (150-450) 01/06/18 09:45 MPV 10.0 fl (8-11.3) 01/06/18 09:45 Neutrophils % (Manual) 83 % (42-75) H 01/06/18 09:45 Band Neuts % (Manual) 10 % (0-2.0) H 01/06/18 09:45 Lymphocytes % (Manual) 5 % (20-51) L 01/06/18 09:45 Monocytes % (Manual) 1 % (0-9) 01/06/18 09:45 Basophils % (Manual) 1 % (0-1) 01/06/18 09:45 Neutrophils # (Manual) 36.1 K/mm3 (1.3-6.0) H 01/06/18 09:45 Lymphocytes # (Manual) 2.2 k/mm3 (1.5-3.5) 01/06/18 09:45 Monocytes # (Manual) 0.4 k/mm3 (0.0-1.0) 01/06/18 09:45 Basophils # (Manual) 0.4 k/mm3 (0.0-0.1) H 01/06/18 09:45 Platelet Estimate Normal (NORMAL) 01/06/18 09:45 RBC Morphology Normal (NORMAL) 01/05/18 17:30 Peripheral Blood Smear Smear sent to path. 01/05/18 21:00 Absolute Retic 0.0828 01/05/18 20:37 Percent Retic 1.9 % (0.4-1.8) H 01/05/18 20:37 Immature Retic Fraction 9.1 % (2.3-13.4) 01/05/18 20:37 Retic Hgb Content 32.0 pg (29-35) 01/05/18 20:37 Sodium 137 mmol/L (132-142) 01/05/18 17:30 Plasma Sodium 137 mmol/L (130-142) 01/05/18 17:30 Potassium 3.8 mmol/L (3.4-4.6) 01/05/18 17:30 Chloride 104 mmol/L (97-106) 01/05/18 17:30 Carbon Dioxide 24.2 mmol/L (24-32.6) 01/05/18 17:30 Anion Gap 12.6 mmol/L (6.8-13.8) 01/05/18 17:30 BUN 16 mg/dL (6-23) 01/05/18 17:30 Creatinine 1.12 mg/dL (0.4-1.4) 01/05/18 17:30 Est GFR (Non-Af Amer) 73 mL/min (60-130) D 01/05/18 17:30 BUN/Creatinine Ratio 14.3 (9.0-21.6) 01/05/18 17:30 Random Glucose 106 mg/dL (70-110) 01/05/18 17:30 Lactic Acid, Venous 1.8 mmol/L (0.4-2.0) 01/05/18 20:40 Calcium 8.3 mg/dL (7.9-10.9) 01/05/18 17:30 Calcium Adj for Albumin 8.8 mg/dL (8.4-10.2) 01/05/18 17:30 Total Bilirubin 0.9 mg/dL (0.0-1.1) 01/05/18 17:30 AST 36 U/L (0-48) 01/05/18 17:30 ALT 46 U/L (19-67) 01/05/18 17:30 Alkaline Phosphatase 79 U/L (50-170) 01/05/18 17:30 Troponin I Less than 0.017 ng/mL (0.00-0.10) 01/05/18 17:30 Total Protein 7.0 gm/dL (6.2-8.2) 01/05/18 17:30 Albumin 3.0 gm/dl (3.4-5.0) L 01/05/18 17:30 Procalcitonin 20.89 ng/mL (0.05-0.50) H 01/05/18 18:59 Urine Color Dark yellow 01/05/18 23:01 Urine Appearance Slightly cloudy (CLEAR) 01/05/18 23:01 Urine pH 6.0 pH (5.0-7.0) 01/05/18 23: Ur Specific [place] 1.025 SP.GR. (1.005-1.030) 01/05/18 23: Urine Protein 30 mg/dL (NEGATIVE) H 01/05/18 23:01 Urine Glucose (UA) Negative mg/dL (NEGATIVE) 01/05/18 23: Urine Ketones Negative mg/dL (NEGATIVE) 01/05/18 23: Urine Blood 50 /ul (NEGATIVE) H 01/05/18 23: Urine Nitrate Negative (NEGATIVE) 01/05/18 23: Urine Bilirubin Negative mg/dl (NEGATIVE) 01/05/18 23: Prot Sulfosalicylic Acd 2+ mg/dL (0) H 01/05/18 23: Urine Urobilinogen Normal EU/dl (NORMAL) 01/05/18 23: Ur Leukocyte Esterase Negative /ul (NEGATIVE) 01/05/18 23: Urine RBC 0-5 /hpf (0-5) 01/05/18 23: Urine WBC 0-5 /hpf (0-5) 01/05/18 23: Ur Epithelial Cells 0-5 /hpf (0-5) 01/05/18 23: Urine Bacteria 1+ (NONE) H 01/05/18 23: Urine Culture Comments No culture indicated 01/05/18 23: Assessment/Plan - Assessment/Plan (1) Cellulitis of left lower extremity Assessment: Stopped Vanc and Rocephin, started on Clindamycin. Repeated CBC q Am. Will monitor WBC. Lactic acid initially elevated but returned to normal limits at repeat. He has been afebrile since admission. VSS Will transition to oral abx as clinical picture improves. Problem: Acute (2) Sepsis Assessment: See number 1. Waiting for blood cultures. Continue inpatient tx Problem: Acute Qualifiers: Sepsis type: sepsis due to unspecified organism Qualified Code(s): A41.9 - Sepsis, unspecified organism
[2018-01-06] MEDS: ENOXAPARIN SODIUM 40 MG/0.4 ML SYRG SC SCH (18:11)
[2018-01-06] MEDS: traMADol HCL 50 MG TABLET PO PRN (18:40)
[2018-01-07] MEDS: CLINDAMYCIN PHOSPHATE 600 MG in DEXTROSE 5 % IN WATER 100 ML IV SCH ×6 (01:17→16:15)
[2018-01-07] MEDS: NORMAL SALINE 1,000 ML IV PRN ×2 (06:52→18:07)
[2018-01-07] MEDS: traMADol HCL 50 MG TABLET PO PRN ×2 (08:29→18:06)
[2018-01-07 09:41] LABS: Hematocrit 33.8 % (42.0-52.0); Mean Cell Volume 84.3 fl (78-100); Mean Corpuscular Hemoglobin 27.4 pg (27-31); Mean Corpuscular Hgb Conc 32.5 g/dl (32-36); Mean Platelet Volume 10.1 fl (8-11.3); Platelet Count 409 K/mm3 (150-450); Red Blood Count 4.01 M/mm3 (4.7-6.0); White Blood Count 17.8 K/mm3 (4.0-10.5)
[2018-01-07 09:44] LABS: Total Cells Counted 100
[2018-01-07 10:28] LABS: Atypical (Reactive) Lymph 2 % (0-2); Band 6 % (0-2.0); Eosinophil 1 % (0-3); Lymphocyte 9 % (20-51); Monocyte 3 % (0-9); Neutrophil 79 % (42-75); Neutrophil # 14.1 K/mm3 (1.3-6.0); Platelet Estimate Normal (NORMAL)
[2018-01-07 10:29] LABS: RBC Morphology Normal (NORMAL)
[2018-01-07] MEDS: IBUPROFEN 800 MG TABLET PO PRN ×2 (13:22→22:40)
[2018-01-07] MEDS: ENOXAPARIN SODIUM 40 MG/0.4 ML SYRG SC SCH (16:53)
--- NOTE | 2018-01-07 20:46 | PN ---
Subjective - Date and Time Seen Date: 01/07/18 Time: 07:46 Objective - Review of Systems Generalized/Overall Review: Reports: No Symptoms Reported EENTM: Reports: No Symptoms Reported Respiratory: Reports: No Symptoms Reported Cardiac: Reports: No Symptoms Reported Abdominal: Reports: No Symptoms Reported Genitourinary Symptoms: Reports: No Symptoms Reported Musculoskeletal Complaints: Reports: Muscle Pain Neurological: Reports: No Symptoms Reported Skin: Reports: Rash, Other - redness and pain of lft lower extremity, improved from yesterday - Vitals Vitals: Last Vital Signs Temp 36.8 C 01/07/18 19:00 Pulse 76 01/07/18 19:00 Resp 18 01/07/18 19:00 BP 144/77 H 01/07/18 19:00 Pulse Ox 94 01/07/18 19:00 - Abnormal Lab Findings Abnormal Lab Findings: Abnormal Lab Results 01/07/18 Range/Units 09:27 WBC 17.8 H D (4.0-10.5) K/mm3 RBC 4.01 L (4.7-6.0) M/mm3 Hgb 11.0 L (13.5-18.0) gm/dL Hct 33.8 L (42.0-52.0) % RDW 16.0 H (11.5-14.0) % Neutrophils % (Manual) 79 H (42-75) % Band Neuts % (Manual) 6 H (0-2.0) % Lymphocytes % (Manual) 9 L (20-51) % Neutrophils # (Manual) 14.1 H (1.3-6.0) K/mm3 - Exam Constitutional: Present: Alert, Oriented x3, Mild distress - from infection in leg Respiratory: Present: chest non-tender, lungs clear, normal breath sounds, decreased breath sounds - frombody habitus Cardiovascular/Chest: Present: normal peripheral pulses, regular rate, rhythm, no JVD, no murmur, no rub, edema - LLE edema Skin Exam: Present: skin rash, other - skin taught from ankle to knee, tender to palpation but improved from yesterday Eye contact: Present: cooperative, good eye contact, normal speech Thoughts: Present: normal thought pattern, normal mood /affect Assessment/Plan - Problems/Diagnosis (1) Cellulitis of left lower extremity Problem: Acute Narrative: Patient transitioned to Clindamycin last 24 hrs. He continues to improve from a clinical stand point. He has been afebrile since moving to the floor. His WBC has repsonded well, down to 17 from 64. His preliminary blood cultures at 48 hrs show no growth. Will transition him to oral abx tomorrow morning and likely can be discharged home tomorrow afternoon on PO clinda. if his clinical picture continues to improve. Other than pain in the leg from the infection, he is doing well. His vitals have been stable. (2) Sepsis Problem: Resolved Qualifiers: Sepsis type: sepsis due to unspecified organism Qualified Code(s): A41.9 - Sepsis, unspecified organism Narrative: See number 1. Patient doing well with current tx plan. Will transition to oral abx tomorrow, hopefully discharged later that day as long as his clinical pictures continues to improve. Resolved
[2018-01-07] MEDS ORDERED: diphenhydrAMINE HCL 50 MG CAPSULE PO ONE (22:19)
[2018-01-08] MEDS: CLINDAMYCIN PHOSPHATE 600 MG in DEXTROSE 5 % IN WATER 100 ML IV SCH ×2 (01:14)
[2018-01-08] MEDS: NORMAL SALINE 1,000 ML IV PRN (02:39)
[2018-01-08] MEDS ORDERED: CLINDAMYCIN HCL 150 MG CAPSULE PO SCH (08:30)
[2018-01-08 09:50] LABS: Hematocrit 34.2 % (42.0-52.0); Hemoglobin 11.2 gm/dL (13.5-18.0); Mean Cell Volume 83.6 fl (78-100); Mean Corpuscular Hemoglobin 27.4 pg (27-31); Mean Corpuscular Hgb Conc 32.7 g/dl (32-36); Mean Platelet Volume 10.3 fl (8-11.3); NRBC# 0.1 k/mm3 (0-1); Neutrophil # 7.8 K/mm3 (1.3-6.0); Neutrophil % 62.9 % (42-75.0); Platelet Count 426 K/mm3 (150-450); Red Blood Count 4.09 M/mm3 (4.7-6.0); Red Cell Distribution Width 16.2 % (11.5-14.0); White Blood Count 12.5 K/mm3 (4.0-10.5)
--- NOTE | 2018-01-08 13:08 | DS ---
(1) Cellulitis of left lower extremity Problem: Acute (2) Sepsis Problem: Resolved Qualifiers: Sepsis type: sepsis due to unspecified organism Qualified Code(s): A41.9 - Sepsis, unspecified organism Procedures Performed: none Results and Findings: Pending Mircobiology Results 01/05/18 18:53 Blood Blood Culture - Preliminary NO GROWTH AFTER 48 HOURS 01/05/18 18:40 Blood Blood Culture - Preliminary NO GROWTH AFTER 48 HOURS Lab Pending Results 01/05/18 17:30: WBC 64.7 H, RBC 4.38 L, Hgb 12.1 L, Hct 36.9 L, MCV 84.2, MCH 27.6, MCHC 32.8, RDW 15.4 H, Plt Count 490 H, MPV 9.7, Neutrophils % (Manual) 70 , Band Neuts % (Manual) 27 H, Lymphocytes % (Manual) 1 L, Monocytes % (Manual) 2 , Neutrophils # (Manual) 45.3 H, Lymphocytes # (Manual) 0.6 L, Monocytes # ( Manual) 1.3 H, Platelet Estimate Increased H, RBC Morphology Normal 01/05/18 17:30: Sodium 137, Plasma Sodium 137, Potassium 3.8, Chloride 104, Carbon Dioxide 24.2, Anion Gap 12.6, BUN 16, Creatinine 1.12, Est GFR (Non-Af Amer) 73 D, BUN/Creatinine Ratio 14.3, Random Glucose 106, Calcium 8.3, Calcium Adj for Albumin 8.8, Total Bilirubin 0.9, AST 36, ALT 46, Alkaline Phosphatase 79, Troponin I Less than 0.017, Total Protein 7.0, Albumin 3.0 L 01/05/18 17:30: Lactic Acid, Venous 2.2 H* 01/05/18 18:59: Procalcitonin 20.89 H 01/05/18 20:37: Absolute Retic 0.0828, Percent Retic 1.9 H, Immature Retic Fraction 9.1, Retic Hgb Content 32.0 01/05/18 20:40: Lactic Acid, Venous 1.8 01/05/18 21:00: Peripheral Blood Smear Smear sent to path. 01/05/18 23:01: Urine Color Dark yellow, Urine Appearance Slightly cloudy, Urine pH 6.0, Ur Specific [place] 1.025, Urine Protein 30 H, Urine Glucose (UA) Negative, Urine Ketones Negative, Urine Blood 50 H, Urine Nitrate Negative, Urine Bilirubin Negative, Prot Sulfosalicylic Acd 2+ H, Urine Urobilinogen Normal, Ur Leukocyte Esterase Negative, Urine RBC 0-5, Urine WBC 0-5, Ur Epithelial Cells 0-5, Urine Bacteria 1+ H, Urine Culture Comments No culture indicated 01/06/18 09:45: WBC 43.5 H D, RBC 4.03 L, Hgb 11.2 L, Hct 34.2 L, MCV 84.9, MCH 27.8, MCHC 32.7, RDW 15.9 H, Plt Count 436, MPV 10.0, Neutrophils % (Manual) 83 H, Band Neuts % (Manual) 10 H, Lymphocytes % (Manual) 5 L, Monocytes % (Manual) 1, Basophils % (Manual) 1, Neutrophils # (Manual) 36.1 H, Lymphocytes # (Manual ) 2.2, Monocytes # (Manual) 0.4, Basophils # (Manual) 0.4 H, Platelet Estimate Normal 01/07/18 09:27: WBC 17.8 H D, RBC 4.01 L, Hgb 11.0 L, Hct 33.8 L, MCV 84.3, MCH 27.4, MCHC 32.5, RDW 16.0 H, Plt Count 409, MPV 10.1, Neutrophils % (Manual) 79 H, Band Neuts % (Manual) 6 H, Lymphocytes % (Manual) 9 L, Monocytes % (Manual) 3 , Eosinophils % (Manual) 1, Neutrophils # (Manual) 14.1 H, Lymphocytes # (Manual ) 1.6, Monocytes # (Manual) 0.5, Eosinophils # (Manual) 0.2, Atypic/Reactive Lymphs 2, Platelet Estimate Normal, RBC Morphology Normal 01/08/18 09:35: WBC 12.5 H D, RBC 4.09 L, Hgb 11.2 L, Hct 34.2 L, MCV 83.6, MCH 27.4, MCHC 32.7, RDW 16.2 H, Plt Count 426, MPV 10.3, Immature Gran % (Auto) 1.80 H, Immature Gran # (Auto) 0.23 H, Neutrophils % 62.9, Lymphocytes % 25.9, Monocytes % 5.7, Eosinophils % 3.1 H, Basophils % 0.6, Nucleated RBC % 0.1, Neutrophils # 7.8 H, Lymphocytes # 3.23, Monocytes # 0.7, Eosinophils # 0.4, Absolute Basophils 0.1 Disposition: Home self-care Condition: Stable Discharge Activity: Activity as tolerated Discharge Diet: Low fat/chol Referrals: Terry Lewis DO [Staff Physician] - (Please make an appointment for 01/13 or 01/14 with me in my office) Additional Patient Instructions (free text): -Please make TCM appointment unless prison discharge. Thank you! Nai @ [phone]. Prescriptions (Any new or edited meds): Clindamycin HCl 300 mg PO QID 7 Days #56 cap Complete Home Medications List: Complete Home Medication List: Cabergoline 0.5 mg PO DAILY 01/11/16 Ibuprofen [Motrin] 800 mg PO TID PRN #30 tab 11/10/16 Calcium Carbonate [Calcium] 500 mg PO TID 01/05/18 Clindamycin HCl 300 mg PO QID 7 Days #56 cap 01/08/18
[2018-01-08 13:28] VITALS: BP 147/68
== END 2018-01-08 13:52 | disposition home or self-care (01) | DRG 872 ==
LOC: ER 16:48 → MS 20:50
PROVIDERS: ADMIT Internal Medicine; ATTEND Family Medicine
CPT/HCPCS: 36415; 71010; 71045; 73590; 80053; 81001; 83605; 84145; 84484; 85007; 85025; 85045; 85060; 87040; 87081; 93005; 93971; 96361; 96365; 96375; 99285

== ENCOUNTER 2020-06-22 13:57 | Inpatient (IN) ==
[2020-06-22] MEDS ORDERED: CLINDAMYCIN PHOSPHATE 600 MG in DEXTROSE 5 % IN WATER 100 ML IV ONE ×4 (15:04→15:45)
[2020-06-22] MEDS ORDERED: CLINDAMYCIN IN 0.9 % SOD CHLOR 600 MG/50 ML BAG IV ONE (15:45)
[2020-06-22] MEDS: fentaNYL CITRATE/PF 50 MCG/ML AMPUL IV ONE ×2 (15:51→17:59)
[2020-06-22 16:24] LABS: Hematocrit 31.6 % (42.0-52.0); Hemoglobin 9.6 gm/dL (13.5-18.0); Mean Corpuscular Hemoglobin 23.7 pg (27-31); Mean Corpuscular Hgb Conc 30.4 g/dl (32-36); Mean Platelet Volume 9.4 fl (8-11.3); Platelet Count 809 K/mm3 (150-450); Red Blood Count 4.05 M/mm3 (4.7-6.0); Red Cell Distribution Width 18.6 % (11.5-14.0); White Blood Count 22.7 K/mm3 (4.0-10.5)
[2020-06-22 16:25] LABS: Total Cells Counted 100
[2020-06-22 16:37] LABS: Anion Gap 12.7 mmol/L (6.8-13.8); BUN/Creatinine Ratio 13.7 (9.0-21.6); Calcium * 8.6 mg/dL (7.9-10.9); Carbon Dioxide 26.1 mmol/L (24-32.6); Estimated Creat Clear 134.5; Potassium 3.8 mmol/L (3.4-4.6)
[2020-06-22] MEDS ORDERED: VANCOMYCIN/WATER FOR INJ (PEG) 1 GM/200 ML BAG IV ONE (16:40)
[2020-06-22 16:54] LABS: Anisocytosis 2+; Hypochromia 1+; Lymphocyte 19 % (20-51); Monocyte 7 % (0-9); Neutrophil 74 % (42-75); Neutrophil # 16.8 K/mm3 (1.3-6.0); Platelet Estimate Increased (NORMAL); Polychromasia 1+
--- NOTE | 2020-06-22 17:01 | ERNOTE ---
Integumentary HPI - Narrative Date of Service: 06/22/20 - General Presenting Symptoms: other - cellulitis Time Seen by Provider: 06/22/20 14:47 Source: patient Exam Limitations: no limitations - Immun/Allergies/Home Medications Immunizations: IMMUNIZATION HX Immunizations Up to Date Yes History of Influenza Vaccine No Hx Pneumococcal Vaccination No Allergies/Adverse Reactions: Allergies Allergy/AdvReac Type Severity Reaction Status Date / Time adhesive Allergy Verified 06/22/20 14:53 Iodinated Contrast Media Allergy Verified 06/22/20 14:53 latex Allergy Verified 06/22/20 14:53 milk Allergy Verified 06/22/20 14:53 oxycodone HCl Allergy Verified 06/22/20 14:53 [From OxyContin] peanut Allergy Verified 06/22/20 14:53 Penicillins Allergy Verified 06/22/20 14:53 Home Medications: HOME MEDICATIONS Clindamycin HCl [Cleocin HCl] 300 mg PO QID #40 cap 06/21/20 [Last Taken Unknown] - History of Present Illness Narrative: Patient presents to the ED for cellulitis. I saw him last night and gave him IV ABx. I recommended admission given his history of cellulitis and need for prolonged IV ABx. He declined this and signed out AMA. I did speak with Dr Rene who was emergency response coordinator so that she would see him in the office and get IV ABx set up in the annex. He returns today with worsening cellulitis and pain. He denies new injury. States he is having left knee cap pain today but no trauma or injury. He has been taking the Clindamycin I Rx'd him last night. No fever. Location: Reports: other - left leg Quality: Reports: painful Severity: moderate Exposure: Reports: no cause identified Modifying Factors - (Improves): Reports: nothing Modifying Factors - (Worsens): Reports: nothing Associated Symptoms: Denies: blisters, rash, fever Prior Treatment: Reports: recently seen, currently on antibiotics Review of Systems - Review of Systems Constitutional: Absent: fever EYE: Present: no symptoms reported ENT: Absent: sore throat Respiratory: Absent: shortness of breath Cardiology: Absent: chest pain Gastrointestinal/Abdominal: Absent: abdominal pain Musculoskeletal: Present: See HPI Skin: Present: See HPI Neurological: Absent: weakness All Other Systems: All systems neg except as marked Medical History (Last Reviewed 06/22/20 @ 16:56 by René Awad MD) Cellulitis Compartment syndrome of left lower extremity D/T hyperextension of leg, had surgical repair URI (upper respiratory infection) Surgical History: Surgical History (Last Reviewed 06/22/20 @ 16:56 by René Awad MD) H/O gastric bypass 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 Family History: Family History (Last Reviewed 06/22/20 @ 16:56 by René Awad MD) Other No pertinent family history Social History: (Last Reviewed 06/22/20 @ 16:56 by René Awad MD) Tobacco: Smoking Status: Never smoker Physical Exam - Physical Exam General Appearance: Present: alert, no apparent distress Head Exam: Present: normal inspection, no evidence of injury Eye Exam: Normal inspection: bilateral, PERRL: bilateral Ears, Nose, Throat: Present: normal ENT inspection Neck: Present: normal inspection Respiratory: Present: no respiratory distress, normal breath sounds, no accessory muscle use, lungs clear Cardiovascular/Chest: Present: regular rate, rhythm Gastrointestinal/Abdominal: Present: normal bowel sounds, nontender, soft Back Exam: Present: normal range of motion Extremity Exam: Present: other - chromic lymphedema left leg. Ther eis ongoing cellulitis left leg, the redness is actually slightly better than yesterday but the redness extends higher on his leg today. No clear septic arthritis. No suggestion of DVT. No clinicl gas in the tissues. Neurological Exam: Present: alert, no motor/sensory deficits Skin Exam: Present: normal color, warm/dry, other - cellulitis as noted Progress - Results and Orders Patient's Lab Results:: I have reviewed the patient's lab results. - Vital Signs Patient's Vital Signs:: I have reviewed the patient's vital signs. Vital Signs: Vital Signs 06/22/20 14:45 06/22/20 15:34 06/22/20 15:56 Temperature 36.5 C 36.8 C Pulse Rate 84 82 86 Respiratory Rate 20 17 20 Blood Pressure 158/87 H 153/92 H 165/81 H O2 Sat by Pulse Oximetry 93 98 97 06/22/20 16:19 06/22/20 16:47 Temperature 36.6 C Pulse Rate 80 82 Respiratory Rate 18 20 Blood Pressure 146/75 H 146/75 H O2 Sat by Pulse Oximetry 96 97 - Progress/Reassessment Chief Complaint: Cellulitis Progress Note-Subjective: 06/22/20 16:58 IV ABx given. I spoke with Dr Rene and Debbie. Dr Lewis will admit the patient. Patient is agreeable today. IV Clinda and IV Vanco given. No clinical suggestion of sepsis or nec fasc at this time. I do not feel imaging would be helpful at this point . Question answered. Departure Clinical Impression: Cellulitis, Failure of outpatient treatment, Lymphedema, Leukocytosis - Departure Disposition: Still a patient Condition: Stable
[2020-06-22] MEDS ORDERED: fentaNYL CITRATE/PF 50 MCG/ML AMPUL IV ONE (17:40)
[2020-06-22] MEDS ORDERED: fentaNYL CITRATE/PF 50 MCG/ML AMPUL ONE (17:56)
[2020-06-22] MEDS ORDERED: NORMAL SALINE 1,000 ML IV ONE (20:27)
[2020-06-22] MEDS ORDERED: ACETAMINOPHEN 500 MG TABLET PO PRN (20:28)
--- NOTE | 2020-06-22 20:30 | HP ---
Chief Complaint - Chief Complaint Date of Service: 06/22/20 Time of Service: 20:29 Chief Complaint: cellulitis RLE History of Present Illness: 54-year-old male with history of compartment syndrome to left lower extremity and morbid obesity presented to the ER yesterday for left lower extremity cellulitis. He was seen and discharged on oral antibiotics and returned to the ER tonight. Patient with significantly worsening cellulitis in his left postsurgical lower extremity. Patient with a leukocytosis, worsening from previous day, up to 23. Patient was started on clindamycin and vancomycin in the ER. Patient has fairly constant pain in his lower extremity. Kidney functions normal and electrolytes are normal. Patient mildly anemic at 9.6. Patient is admitted to the floor for IV antibiotics. Patient denies any other issues at this time and states besides his left leg pain, he feels well. 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 Family History: Family History (Last Reviewed 06/22/20 @ 16:56 by René Awad MD) Other No pertinent family history Social History: (Last Reviewed 06/22/20 @ 16:56 by René Awad MD) Tobacco: Smoking Status: Never smoker Review Of Systems (GEN) - Review of Systems Generalized/Overall Review: Present: Chills, Fever EENTM: Present: No Symptoms Reported Respiratory: Present: No Symptoms Reported Cardiac: Present: No Symptoms Reported Abdominal: Present: No Symptoms Reported Genitourinary: Present: No Symptoms Reported Musculoskeletal: Present: Muscle Pain, Other - left lower extremity pain Skin: Present: Change in Color Immunizations: IMMUNIZATION HX Immunizations Up to Date Yes History of Influenza Vaccine No Hx Pneumococcal Vaccination No Allergies/Adverse Reactions: Allergies Allergy/AdvReac Type Severity Reaction Status Date / Time adhesive Allergy Verified 06/22/20 14:53 Iodinated Contrast Media Allergy Verified 06/22/20 14:53 latex Allergy Verified 06/22/20 14:53 milk Allergy Verified 06/22/20 14:53 oxycodone HCl Allergy Verified 06/22/20 14:53 [From OxyContin] peanut Allergy Verified 06/22/20 14:53 Penicillins Allergy Verified 06/22/20 14:53 Home Medications: HOME MEDICATIONS Clindamycin HCl [Cleocin HCl] 300 mg PO QID #40 cap 06/21/20 [Last Taken 06/22/20] Exam - Exam Vital Signs: Vital Signs - Last Taken Temp 37.5 C 06/22/20 18:51 Pulse 89 06/22/20 18:51 Resp 16 06/22/20 18:51 BP 150/86 H 06/22/20 18:51 Pulse Ox 93 06/22/20 18:51 Constitutional: Present: Alert, Oriented x3, Cooperative, Acute distress - Left lower extremity pain, Morbidly obese ENT Exam: Present: hearing grossly normal Eye Exam: bilateral eye: normal inspection, EOMI Neck: Present: non-tender, supple Respiratory: Present: lungs clear, normal breath sounds Cardiovascular/Chest: Present: regular rate, rhythm, no murmur Peripheral Pulses: dorsalis-pedis (R): 2+, dorsalis-pedis (L): 2+ Abdomen: Present: soft, nontender, nondistended, obese. Absent: tender, guarding, rigidity Extremity: Present: leg pain Skin Exam: Present: other - Significant erythema left lower extremity with postsurgical changes from fasciotomy Erythema outlined from ankle to just below his knee, circumferential, warm to the touch, no drainage Neurologic: Present: no motor/sensory deficits, alert, oriented x 3 Appearance: Present: appropriate appearance, appropriate insight Eye contact: Present: cooperative, good eye contact Thoughts: Present: normal thought pattern, normal mood /affect Diagnostic Studies: Abnormal Lab Results 06/22/20 Range/Units 16:15 WBC 22.7 H (4.0-10.5) K/mm3 RBC 4.05 L (4.7-6.0) M/mm3 Hgb 9.6 L (13.5-18.0) gm/dL Hct 31.6 L (42.0-52.0) % MCH 23.7 L (27-31) pg MCHC 30.4 L (32-36) g/dl RDW 18.6 H (11.5-14.0) % Plt Count 809 H (150-450) K/mm3 Lymphocytes % (Manual) 19 L (20-51) % Neutrophils # (Manual) 16.8 H (1.3-6.0) K/mm3 Lymphocytes # (Manual) 4.3 H (1.5-3.5) k/mm3 Monocytes # (Manual) 1.6 H (0.0-1.0) k/mm3 Platelet Estimate Increased H (NORMAL) Laboratory Results WBC 22.7 K/mm3 (4.0-10.5) H 06/22/20 16:15 RBC 4.05 M/mm3 (4.7-6.0) L 06/22/20 16:15 Hgb 9.6 gm/dL (13.5-18.0) L 06/22/20 16:15 Hct 31.6 % (42.0-52.0) L 06/22/20 16:15 MCV 78.0 fl (78-100) 06/22/20 16:15 MCH 23.7 pg (27-31) L 06/22/20 16:15 MCHC 30.4 g/dl (32-36) L 06/22/20 16:15 RDW 18.6 % (11.5-14.0) H 06/22/20 16:15 Plt Count 809 K/mm3 (150-450) H 06/22/20 16:15 MPV 9.4 fl (8-11.3) 06/22/20 16:15 Neutrophils % (Manual) 74 % (42-75) 06/22/20 16:15 Lymphocytes % (Manual) 19 % (20-51) L 06/22/20 16:15 Monocytes % (Manual) 7 % (0-9) 06/22/20 16:15 Neutrophils # (Manual) 16.8 K/mm3 (1.3-6.0) H 06/22/20 16:15 Lymphocytes # (Manual) 4.3 k/mm3 (1.5-3.5) H 06/22/20 16:15 Monocytes # (Manual) 1.6 k/mm3 (0.0-1.0) H 06/22/20 16:15 Toxic Vacuolation Trace 06/22/20 16:15 Platelet Estimate Increased (NORMAL) H 06/22/20 16:15 Polychromasia 1+ 06/22/20 16:15 Hypochromasia 1+ 06/22/20 16:15 Anisocytosis 2+ 06/22/20 16:15 Sodium 141 mmol/L (132-142) 06/22/20 16:15 Plasma Sodium 141 mmol/L (130-142) 06/22/20 16:15 Potassium 3.8 mmol/L (3.4-4.6) 06/22/20 16:15 Chloride 106 mmol/L (97-106) 06/22/20 16:15 Carbon Dioxide 26.1 mmol/L (24-32.6) 06/22/20 16:15 Anion Gap 12.7 mmol/L (6.8-13.8) 06/22/20 16:15 BUN 10 mg/dL (6-23) 06/22/20 16:15 Creatinine 0.73 mg/dL (0.4-1.4) 06/22/20 16:15 Est GFR (Non-Af Amer) 119 mL/min (60-130) D 06/22/20 16:15 BUN/Creatinine Ratio 13.7 (9.0-21.6) 06/22/20 16:15 Random Glucose 101 mg/dL (70-110) 06/22/20 16:15 Lactic Acid, Venous 0.8 mmol/L (0.4-2.0) 06/22/20 16:15 Calcium 8.6 mg/dL (7.9-10.9) 06/22/20 16:15 SARS-CoV-2 (PCR) Not detected (NotDetected) 06/22/20 16:42 Assessment/Plan - Narrative Narrative: Patient admitted due to significantly worsening cellulitis from previous day. Patient started on vancomycin and clindamycin in the ER which we will continue for a couple of days and then discontinue the vancomycin and likely discharge him home on clindamycin once his cellulitic infection is under control. Vanco trough ordered. Kidney functions appropriate. Will repeat CBC and CMP in the morning. Patient started on Lovenox due to DVT risk with infection and morbid obesity. Blood cultures from 06/21/2020 are negative for any growth. Tylenol and morphine ordered for pain control. Vital signs been stable and patient's been afebrile. Patient is a diabetic. Regular diet ordered. Nurse to call questions or concerns. - Assessment/Plan (1) Cellulitis of left lower extremity Problem: Resolved (2) Morbid obesity with BMI of 50.0-59.9, adult Problem: Acute (3) Leukocytosis Problem: Acute
[2020-06-22] MEDS: MORPHINE SULFATE 4 MG/ML SYRG IV PRN (20:43)
[2020-06-22] MEDS ORDERED: ENOXAPARIN SODIUM 40 MG/0.4 ML SYRG SC SCH (22:00)
[2020-06-22] MEDS ORDERED: diphenhydrAMINE HCL 50 MG CAPSULE PO ONE (22:45)
[2020-06-22] MEDS: CLINDAMYCIN IN 0.9 % SOD CHLOR 600 MG/50 ML BAG IV SCH (23:50)
[2020-06-23] MEDS: MORPHINE SULFATE 4 MG/ML SYRG IV PRN ×3 (00:49→21:05)
[2020-06-23] MEDS ORDERED: VANCOMYCIN/WATER FOR INJ (PEG) 1 GM/200 ML BAG IV SCH ×2 (01:00→01:45)
[2020-06-23] MEDS: VANCOMYCIN/WATER FOR INJ (PEG) 1 GM/200 ML BAG IV SCH ×4 (01:43→23:10)
[2020-06-23 07:23] LABS: Mean Cell Volume 79.5 fl (78-100); Platelet Count 604 K/mm3 (150-450); Red Blood Count 2.78 M/mm3 (4.7-6.0); Red Cell Distribution Width 18.6 % (11.5-14.0); White Blood Count 26.9 K/mm3 (4.0-10.5)
[2020-06-23] MEDS ORDERED: VANCOMYCIN HCL 1.25 GM in DEXTROSE 5 % IN WATER 250 ML IV SCH ×2 (07:30)
[2020-06-23] MEDS: CLINDAMYCIN IN 0.9 % SOD CHLOR 600 MG/50 ML BAG IV SCH ×2 (07:57→19:16)
[2020-06-23 08:04] LABS: Hematocrit 22.1 % (42.0-52.0); Hemoglobin 6.4 gm/dL (13.5-18.0)
[2020-06-23 08:05] LABS: Albumin * 1.9 gm/dl (3.4-5.0); Anion Gap 10.4 mmol/L (6.8-13.8); BUN/Creatinine Ratio 19.3 (9.0-21.6); Bilirubin, Total 0.4 mg/dL (0.0-1.1); Calcium * 7.6 mg/dL (7.9-10.9); Carbon Dioxide 25.8 mmol/L (24-32.6); Potassium 4.2 mmol/L (3.4-4.6); Total Cells Counted 100; Total Protein 5.7 gm/dL (6.2-8.2)
[2020-06-23 08:10] LABS: Eosinophil 1 % (0-3); Lymphocyte 8 % (20-51); Monocyte 9 % (0-9); Neutrophil 82 % (42-75); Neutrophil # 22.1 K/mm3 (1.3-6.0)
[2020-06-23 08:11] LABS: Platelet Estimate Increased (NORMAL)
[2020-06-23 08:12] LABS: Anisocytosis 1+; Polychromasia 1+
[2020-06-23 08:14] LABS: Microcytosis 1+
[2020-06-23 08:16] LABS: Giant Platelets 1+
[2020-06-23] MEDS ORDERED: NORMAL SALINE 1,000 ML IV ONE (11:42)
--- NOTE | 2020-06-23 13:13 | PN ---
Subjective - Date and Time Seen Date: 06/23/20 Time: 13:12 Subjective Narrative: Patient cellulitic infection significantly improved, left lower extremity much less tender or red. You start to see withdrawal from the markings that outlined initial cellulitic infection. Patient states that he does feel better. Of note though patient feels like crap today as he has had multiple loose bloody bowel movements overnight and I was not notified of. Repeat hemoglobin today was 6.4, down from 11.6. Patient is typed and crossed and will be transfused 2 units. Patient have a nuclear read blood cell scan. His vital signs been stable though he has not been hypotensive or tachycardic Objective - Review of Systems Generalized/Overall Review: Reports: Weakness. Denies: Chills, Fever EENTM: Reports: No Symptoms Reported Respiratory: Reports: No Symptoms Reported Cardiac: Reports: No Symptoms Reported Abdominal: Reports: Nausea, Bright blood from rectum Genitourinary Symptoms: Reports: No Symptoms Reported Musculoskeletal Complaints: Reports: Muscle Pain - Left lower extremity due to infection Neurological: Reports: No Symptoms Reported Skin: Reports: No Symptoms Reported Endocrine: Reports: No Symptoms Reported - Vitals Vitals: Last Vital Signs Temp 36.5 C 06/23/20 11:45 Pulse 98 06/23/20 11:45 Resp 20 06/23/20 11:45 BP 110/59 06/23/20 11:45 Pulse Ox 97 06/23/20 11:45 - Abnormal Lab Findings Abnormal Lab Findings: Abnormal Lab Results 06/22/20 06/23/20 06/23/20 Range/Units 16:15 06:35 06:35 WBC 22.7 H 26.9 H (4.0-10.5) K/mm3 RBC 4.05 L 2.78 L (4.7-6.0) M/mm3 Hgb 9.6 L 6.4 L* D (13.5-18.0) gm/dL Hct 31.6 L 22.1 L* D (42.0-52.0) % MCH 23.7 L 23.0 L (27-31) pg MCHC 30.4 L 29.0 L (32-36) g/dl RDW 18.6 H 18.6 H (11.5-14.0) % Plt Count 809 H 604 H (150-450) K/mm3 Neutrophils % (Manual) 82 H (42-75) % Lymphocytes % (Manual) 19 L 8 L (20-51) % Neutrophils # (Manual) 16.8 H 22.1 H (1.3-6.0) K/mm3 Lymphocytes # (Manual) 4.3 H (1.5-3.5) k/mm3 Monocytes # (Manual) 1.6 H 2.4 H (0.0-1.0) k/mm3 Platelet Estimate Increased H Increased H (NORMAL) Plasma Sodium 143 H (130-142) mmol/L Chloride 110 H (97-106) mmol/L Random Glucose 147 H D (70-110) mg/dL Calcium 7.6 L (7.9-10.9) mg/dL ALT 15 L (19-67) U/L Total Protein 5.7 L (6.2-8.2) gm/dL Albumin 1.9 L (3.4-5.0) gm/dl Crossmatch 06/23/20 Range/Units 08:49 WBC (4.0-10.5) K/mm3 RBC (4.7-6.0) M/mm3 Hgb (13.5-18.0) gm/dL Hct (42.0-52.0) % MCH (27-31) pg MCHC (32-36) g/dl RDW (11.5-14.0) % Plt Count (150-450) K/mm3 Neutrophils % (Manual) (42-75) % Lymphocytes % (Manual) (20-51) % Neutrophils # (Manual) (1.3-6.0) K/mm3 Lymphocytes # (Manual) (1.5-3.5) k/mm3 Monocytes # (Manual) (0.0-1.0) k/mm3 Platelet Estimate (NORMAL) Plasma Sodium (130-142) mmol/L Chloride (97-106) mmol/L Random Glucose (70-110) mg/dL Calcium (7.9-10.9) mg/dL ALT (19-67) U/L Total Protein (6.2-8.2) gm/dL Albumin (3.4-5.0) gm/dl Crossmatch See Detail - Exam Constitutional: Present: Alert, Oriented x3, Mild distress, Morbidly obese ENT Exam: Present: hearing grossly normal Neck: Present: non-tender, supple Respiratory: Present: lungs clear, normal breath sounds Cardiovascular/Chest: Present: regular rate, rhythm, no murmur Abdomen: Present: soft, no rebound tenderness, tender - Diffuse. Absent: guarding, rigidity Extremity: Present: leg pain Skin Exam: Present: other - Erythema much improved with left lower extremity, s tart to see receding from markings. Less warm to the touch. Less painful per patient. Appearance: Present: appropriate appearance, appropriate insight Eye contact: Present: cooperative, good eye contact Thoughts: Present: normal thought pattern, normal mood /affect Assessment/Plan Plan Narrative: Overall patient cellulitic infection is improving. White count did increase overnight though. Patient currently on vanc and clindamycin, will continue both for the next day or so and then transition him over to just clindamycin as this will likely be what he goes home on when he is discharged. Vanc trough ordered. Kidney function appropriate. Now on the more serious matter, patient is anemic due to acute blood loss from his bowels. Patient did not mention that he was having bloody stools before he came in and he was started on Lovenox due to infection and morbid obesity. Lovenox is now being held. Patient is being transfused 2 units with repeat hemogram 2 hours post transfusion. Patient has a red blood cell scan ordered. Due to patient's body habitus and severity of his blood loss per rectum, recommend patient be transferred to another hospital with higher level of care if possible. Currently waiting to hear back from [facility] at this time. Did discuss this with Dr. Son who states he will not be able to take care of the patient here due to his body habitus and if he were to need a procedure he would have to go elsewhere. Bleeding likely due to diverticuli patient is a colonoscopy so unsure at this time. Patient not currently on DVT prophylaxis due to his acute bleeding. Cannot tolerate SCDs due to his infection his lower extremity. Repeat hemogram in 2 hours. Repeat CBC and CMP in the morning if he ends up staying here. We will have an additional 2 units available if patient continues to bleed. Waiting for results from his scan. Also waiting to hear back from the other hospital. 1 hour spent with the patient today during examination, answering questions, change in treatment plans, and return to the other hospital for possible t ransfer. Nurse to call questions or concerns. Continue current treatment plan. - Problems/Diagnosis (1) Cellulitis of left lower extremity Problem: Resolved (2) Morbid obesity with BMI of 50.0-59.9, adult Problem: Acute (3) Leukocytosis Problem: Acute (4) Acute blood loss anemia Problem: Acute (5) Bright red blood per rectum Problem: Acute
[2020-06-23] MEDS ORDERED: VANCOMYCIN HCL LEVEL XX ONE (16:30)
--- NOTE | 2020-06-23 16:45 | DS ---
Transfer Discharge Summary - Diagnosis(s)/Problems (1) Acute blood loss anemia Problem: Acute (2) Bright red blood per rectum Problem: Acute (3) Cellulitis of left lower extremity Problem: Resolved (4) Morbid obesity with BMI of 50.0-59.9, adult Problem: Acute (5) Leukocytosis Problem: Acute - Course Description of Stay: 54 year old male with morbid obesity and cellulitis currently on IV abxs is to be transferred to the [facility] due to severe blood loss anemia from his lower GI track. Patient originally came in for cellulitis but failed to mention he had been having bloody stools for the last couple of days. He was given a dose of lovenox on day of admission due to body habitus and infection which was to be used as DVT ppx. He started having bloody stools early this morning. Hemoglobin dropped to 6.4. 2 units of blood was ordered for transfusion as well as NUC red blood cell scan. Our general surgeon was consulted but refused the case due to concern for patients weight. Repeat hemoglobin this morning was 6.6. Currently being transfused another 2 units of blood while awaiting on transfer acceptance for the [facility]. Both [facility] and [facility] were unable to take him due to his body habitus. Patient is having mallory red blood per rectum in large amounts. Endorses abdominal pain today. Hx of GERD. His vital signs are stable though he is pale. Denied sob. He is currently on vancomycin and clindamycin, plan was to discontinue the vancomycin after another 24 hrs and likely switch him to oral clindamycin prior to discharge if his infection continued to clear. Significant imrpovement in decreased area/redness/warmth today. Procedures Performed: none - Results and Findings Results and Findings: Laboratory Results - last 24 hr 06/22/20 06/22/20 06/22/20 16:15 16:15 16:15 WBC 22.7 H RBC 4.05 L Hgb 9.6 L Hct 31.6 L MCV 78.0 MCH 23.7 L MCHC 30.4 L RDW 18.6 H Plt Count 809 H MPV 9.4 Neutrophils % (Manual) 74 Lymphocytes % (Manual) 19 L Monocytes % (Manual) 7 Eosinophils % (Manual) Neutrophils # (Manual) 16.8 H Lymphocytes # (Manual) 4.3 H Monocytes # (Manual) 1.6 H Eosinophils # (Manual) Toxic Vacuolation Trace Platelet Estimate Increased H Giant Platelets Polychromasia 1+ Hypochromasia 1+ Anisocytosis 2+ Microcytosis Sodium 141 Plasma Sodium 141 Potassium 3.8 Chloride 106 Carbon Dioxide 26.1 Anion Gap 12.7 BUN 10 Creatinine 0.73 Est GFR (Non-Af Amer) 119 D BUN/Creatinine Ratio 13.7 Random Glucose 101 Lactic Acid, Venous 0.8 Calcium 8.6 Calcium Adj for Albumin Total Bilirubin AST ALT Alkaline Phosphatase Total Protein Albumin SARS-CoV-2 (PCR) Blood Type Antibody Screen Crossmatch 06/22/20 06/23/20 06/23/20 16:42 06:35 06:35 WBC 26.9 H RBC 2.78 L Hgb 6.4 L* D Hct 22.1 L* D MCV 79.5 MCH 23.0 L MCHC 29.0 L RDW 18.6 H Plt Count 604 H MPV 10.0 Neutrophils % (Manual) 82 H Lymphocytes % (Manual) 8 L Monocytes % (Manual) 9 Eosinophils % (Manual) 1 Neutrophils # (Manual) 22.1 H Lymphocytes # (Manual) 2.2 Monocytes # (Manual) 2.4 H Eosinophils # (Manual) 0.3 Toxic Vacuolation Platelet Estimate Increased H Giant Platelets 1+ Polychromasia 1+ Hypochromasia Anisocytosis 1+ Microcytosis 1+ Sodium 142 Plasma Sodium 143 H Potassium 4.2 Chloride 110 H Carbon Dioxide 25.8 Anion Gap 10.4 BUN 17 D Creatinine 0.88 Est GFR (Non-Af Amer) 96 BUN/Creatinine Ratio 19.3 Random Glucose 147 H D Lactic Acid, Venous Calcium 7.6 L Calcium Adj for Albumin 9.0 Total Bilirubin 0.4 AST 12 ALT 15 L Alkaline Phosphatase 64 Total Protein 5.7 L Albumin 1.9 L SARS-CoV-2 (PCR) Not detected Blood Type Antibody Screen Crossmatch 06/23/20 08:49 WBC RBC Hgb Hct MCV MCH MCHC RDW Plt Count MPV Neutrophils % (Manual) Lymphocytes % (Manual) Monocytes % (Manual) Eosinophils % (Manual) Neutrophils # (Manual) Lymphocytes # (Manual) Monocytes # (Manual) Eosinophils # (Manual) Toxic Vacuolation Platelet Estimate Giant Platelets Polychromasia Hypochromasia Anisocytosis Microcytosis Sodium Plasma Sodium Potassium Chloride Carbon Dioxide Anion Gap BUN Creatinine Est GFR (Non-Af Amer) BUN/Creatinine Ratio Random Glucose Lactic Acid, Venous Calcium Calcium Adj for Albumin Total Bilirubin AST ALT Alkaline Phosphatase Total Protein Albumin SARS-CoV-2 (PCR) Blood Type A Positive Antibody Screen Negative Crossmatch See Detail - Medications Medications: Active Medications Clindamycin/Sodium Chloride (Cleocin) 600 mg in 50 mls @ 50 mls/hr IV Q8H [facility] Stop: 07/23/20 00:01 Last Infusion: 06/23/20 08:57 Dose: Infused Documented by: Vancomycin/PEG/NADA/Lysine/Water (Vancomycin) 1 gm in 200 mls @ 100 mls/hr IV Q8H [facility] Stop: 07/23/20 01:01 Last Infusion: 06/23/20 11:03 Dose: Infused Documented by: Morphine Sulfate (Morphine Sulfate 4 Mg/Ml Syrg) 4 mg IV Q4H PRN PRN Reason: Pain Stop: 07/22/20 20:31 Last Admin: 06/23/20 15:18 Dose: 4 mg Documented by: Discontinued Medications Diphenhydramine HCl (Diphenhydramine Hcl 50 Mg Capsule) 50 mg PO ONCE ONE Stop: 06/22/20 22:46 Last Admin: 06/22/20 22:49 Dose: 50 mg Documented by: Enoxaparin Sodium (Enoxaparin Sodium 40 Mg/0.4 Ml Syrg) 40 mg SC DAILY@2100 [facility] Stop: 07/22/20 22:01 Last Admin: 06/22/20 22:08 Dose: 40 mg Documented by: Fentanyl Citrate (Fentanyl Citrate/Pf 50 Mcg/Ml Ampul) 25 mcg IV ONCE ONE Stop: 06/22/20 15:46 Last Admin: 06/22/20 17:59 Dose: 25 mcg Documented by: Fentanyl Citrate (Fentanyl Citrate/Pf 50 Mcg/Ml Ampul) 25 mcg IV ONCE ONE Stop: 06/22/20 17:41 Last Admin: 06/22/20 18:03 Dose: Not Given Documented by: Clindamycin/Sodium Chloride (Cleocin) 600 mg in 50 mls @ 100 mls/hr IV ONCE ONE Stop: 06/22/20 16:14 Last Infusion: 06/22/20 16:48 Dose: Infused Documented by: Vancomycin/PEG/NADA/Lysine/Water (Vancomycin) 1 gm in 200 mls @ 75 mls/hr IV ONCE ONE Stop: 06/22/20 19:19 Last Infusion: 06/22/20 19:58 Dose: Infused Documented by: Vancomycin/PEG/NADA/Lysine/Water (Vancomycin) 1 gm in 200 mls @ 100 mls/hr IV Q8H [facility] Stop: 07/23/20 01:01 Last Admin: 06/23/20 06:38 Dose: Not Given Documented by: Sodium Chloride (Sodium Chloride 0.9%) 1,000 mls @ 125 mls/hr IV .Q8H ONE Stop: 06/23/20 04:26 Last Infusion: 06/23/20 07:56 Dose: Infused Documented by: Sodium Chloride (Sodium Chloride 0.9%) 1,000 mls @ 999 mls/hr IV .Q1H1M ONE Stop: 06/23/20 12:42 Last Admin: 06/23/20 14:17 Dose: 999 mls/hr Documented by: - Disposition Disposition: Short Term Hospital Inpatient Condition: Critical Discharge Date: 06/24/20 Discharge Time: 13:59
[2020-06-24 01:21] LABS: Mean Cell Volume 82.4 fl (78-100); Mean Corpuscular Hemoglobin 25.2 pg (27-31); Mean Corpuscular Hgb Conc 30.6 g/dl (32-36); Mean Platelet Volume 9.4 fl (8-11.3); Platelet Count 485 K/mm3 (150-450); Red Blood Count 2.62 M/mm3 (4.7-6.0); Red Cell Distribution Width 18.6 % (11.5-14.0); White Blood Count 25.9 K/mm3 (4.0-10.5)
[2020-06-24 01:26] LABS: Hematocrit 21.6 % (42.0-52.0); Hemoglobin 6.6 gm/dL (13.5-18.0)
[2020-06-24 01:27] LABS: Total Cells Counted 100
[2020-06-24] MEDS: CLINDAMYCIN IN 0.9 % SOD CHLOR 600 MG/50 ML BAG IV SCH (03:30)
[2020-06-24 04:06] LABS: Basophil 1 % (0-1); Eosinophil 2 % (0-3); Lymphocyte 19 % (20-51); Monocyte 4 % (0-9); Neutrophil 74 % (42-75); Neutrophil # 19.2 K/mm3 (1.3-6.0)
[2020-06-24 04:07] LABS: Anisocytosis 1+; Platelet Estimate Normal (NORMAL); Polychromasia 1+
[2020-06-24] MEDS ORDERED: LIDOCAINE HCL 20 ML VIAL ONE (10:03)
[2020-06-24] MEDS: MORPHINE SULFATE 4 MG/ML SYRG IV PRN ×2 (10:27→14:28)
--- NOTE | 2020-06-24 10:59 | ANES ---
Anesthesia Procedure Note Procedure Note: ANESTHESIA PROCEDURE NOTE Date of Procedure: 06/24/2020 Time of procedure: 10:30 AM. Performed by: BOBBY Suarez CRNA, MSN Preprocedure diagnosis: Cellulitis, anemia post transfusion, lack of venous access. Post procedure diagnosis: Same. Procedure: Venipuncture for IV access. Indications: Lack of venous access need for ongoing antibiotic therapy as well as transfusion therapy. Findings: Mr. Khanna has had a consistent drop in hemoglobin in spite of multiple transfusions. He has had multiple peripheral IVs, all of which have eventually infiltrated. He has little to nothing visible and no palpable veins. Complicating factors include the fact that he seems to bleed easily even though his Lovenox was stopped yesterday. On discussions with Dr. Easley, the attending RN and the patient; explaining all possibilities of venous access and potential risks as well as findings on ultrasound, it was decided a peripheral IV would be quite adequate for his current requirements. Details of the procedure: The patient was prepped with chlorhexidine and using sterile technique, his right antecubital was scanned with ultrasound demonstrating a reasonably sized vein in the area. Lidocaine 1% was injected under the skin, a number 18-gauge IV was established using ultrasound guidance, was flushed and then secured in place. EBL: Minimal. Fluids: N/A. Specimen: N/A. Post procedure condition: The patient tolerated the procedure well. No complications were noted. Thank you for this consultation. Gonzalez Velez CRNA, ARNP, MSN
[2020-06-24] MEDS ORDERED: CLINDAMYCIN HCL 150 MG CAPSULE PO SCH (12:15)
[2020-06-24 13:49] VITALS: BP 125/60
--- NOTE | 2020-06-24 14:12 | ANES ---
Anesthesia Procedure Note Procedure Note: ANESTHESIA PROCEDURE NOTE Date of procedure: 06/24/2020. Time of procedure: 1330. Performed by: Melquiades Minor CRNA Market Development Analyst: None . Preprocedure diagnosis: GI bleed. Cellulitis anemia. Difficult IV access. Post procedure diagnosis: Same. Procedure: PICC line insertion Indications: Central venous access for fluid and blood administration. Findings: Patient's left antecubital fossa was prepped and draped sterilely. Venous access with a 22-gauge Angiocath with ultrasound assistance. Attempted guidewire insertion without success. Procedure aborted. Only IV access is in the right antecubital so PICC line not attempted on the patient's right side. EBL: Minimal. Fluids: N/A. Specimen: N/A. Post procedure condition: The patient tolerated the procedure well. No complications were noted. Thank you for this consultation Melquiades Minor CRNA
== END 2020-06-24 14:29 | disposition short-term general hospital (02) | DRG 603 ==
LOC: MS 13:57 → ER 13:57 → MS 18:45
PROVIDERS: ADMIT Family Medicine; ATTEND Family Medicine